=== PATIENT | female | born 1930 | race Caucasian/White ===

== ENCOUNTER 2016-09-02 13:48 | Outpatient (CLI) | payer MEDICARE, OTHER | END 2016-09-02 23:59 | DX: I47.1 Supraventricular tachycardia (principal); I10 Essential (primary) hypertension; I48.0 Paroxysmal atrial fibrillation; J44.9 Chronic obstructive pulmonary disease, unspecified ==

== ENCOUNTER 2017-01-20 09:32 | Outpatient (CLI) | payer MEDICARE, OTHER ==
[2017-01-20 12:55] LABS: CALCIUM 9.6 mg/dL (8.5-10.3); CREATININE 0.8 mg/dL (0.4-1.0); POTASSIUM 4.5 mmol/L (3.5-5.0)
[2017-01-20 13:24] LABS: HCT - HEMATOCRIT 36.4 % (37.0-47.0); HGB - HEMOGLOBIN 11.7 g/dL (12.0-16.0); MEAN CORPUSCULAR HEMOGLOBIN 31.7 pg (27.0-31.0); MEAN CORPUSCULAR HGB CONC 32.1 g/dL (32.0-36.0); MEAN CORPUSCULAR VOLUME 98.7 fL (81.0-99.0); MEAN PLATELET VOLUME 8.3 fL (7.9-10.8); RED BLOOD COUNT 3.68 10^6/uL (4.20-5.40); RED CELL DISTRIBUTION WIDTH 15.2 % (12.0-15.0); WHITE BLOOD COUNT 6.8 x10^3/uL (4.8-10.8)
== END 2017-01-20 09:33 | disposition home or self-care (01) ==
LOC: LAB.WCP 09:32
PROVIDERS: ATTEND Family Medicine
DX: R60.0 Localized edema (principal)
CPT/HCPCS: 36415; 80048; 85025

== ENCOUNTER 2017-02-16 14:36 | Emergency (ER) | payer MEDICARE, OTHER ==
[2017-02-16] MEDS ORDERED: SODIUM CHLORIDE 0.9% 1,000 ML IV ONE (15:51)
[2017-02-16] MEDS ORDERED: DEXAMETHASONE 10 MG/ML VIAL IVP STA (15:51)
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
[2017-02-16] MEDS ORDERED: DEXAMETHASONE 10 MG/ML VIAL ONE (16:00)
[2017-02-16] MEDS ORDERED: SODIUM CHLORIDE FLUSH 0.9% 10 ML SYRINGE IVP ONE (16:01)
[2017-02-16 16:19] LABS: BILIRUBIN,URINE NEGATIVE (NEGATIVE); PH,URINE 5.5 PH (5.0-7.5)
[2017-02-16 16:21] LABS: UA CHARGE (STRIP ONLY) YES; UR CULTURE IF IND NOT INDICATED
[2017-02-16 16:39] LABS: BASOPHILS # (AUTO) 0.1 10^3/uL (0.0-0.1); BASOPHILS % (AUTO) 0.8 %; EOSINOPHILS # (AUTO) 0.1 10^3/uL (0.0-0.7); EOSINOPHILS % (AUTO) 1.4 %; HCT - HEMATOCRIT 40.2 % (37.0-47.0); LYMPHOCYTES # (AUTO) 1.1 10^3/uL (1.5-3.5); LYMPHOCYTES % (AUTO) 12.6 %; MEAN CORPUSCULAR HGB CONC 32.3 g/dL (32.0-36.0); MEAN PLATELET VOLUME 7.8 fL (7.9-10.8); MONOCYTES # (AUTO) 0.7 10^3/uL (0.0-1.0); MONOCYTES % (AUTO) 7.6 %; NEUTROPHILS % (AUTO) 77.6 %; RED BLOOD COUNT 4.06 10^6/uL (4.20-5.40); RED CELL DISTRIBUTION WIDTH 14.5 % (12.0-15.0)
--- NOTE | 2017-02-16 16:45 | XRAY Preliminary Report ---
Exam: XR Chest 2 View PA/LAT IMPRESSION: 1. Hyperinflation suggesting underlying emphysema with pulmonary cephalization. [facility] SITE ID: [id number]
[2017-02-16 16:48] VITALS: BP 116/58
--- NOTE | 2017-02-16 16:48 | XRAY Report ---
EXAM: CHEST RADIOGRAPHY EXAM DATE: 02/16/2017 03:55 PM. CLINICAL HISTORY: Left posterior chest pain. COMPARISON: Chest x-ray 09/07/2014. TECHNIQUE: 2 views. FINDINGS: Lungs/Pleura: Hyperinflated chest without evidence of pleural effusion or pneumothorax. Pulmonary cep halization. Mediastinum: Normal heart size with aortic tortuosity and atherosclerotic calcification. Other: Osteopenia IMPRESSION: 1. Hyperinflation suggesting underlying emphysema with pulmonary cephalization. [facility] Referring Provider Line: [phone] SITE ID: [id number]
[2017-02-16 16:53] LABS: ALBUMIN/GLOBULIN RATIO 1.3 (1.0-2.2); BILIRUBIN,TOTAL 0.4 mg/dL (0.2-1.0); CALCIUM 10.2 mg/dL (8.5-10.3); POTASSIUM 4.2 mmol/L (3.5-5.0); TOTAL PROTEIN 7.6 g/dL (6.7-8.2)
[2017-02-16] MEDS ORDERED: HYDROcod/ACET 5/325 Prepack 6 PO ONE ×2 (18:04→18:10)
== END 2017-02-16 18:15 | disposition home or self-care (01) ==
LOC: ED 14:36
DX: E86.0 Dehydration (principal); M79.1 Myalgia; J44.9 Chronic obstructive pulmonary disease, unspecified; Z99.81 Dependence on supplemental oxygen; Z79.82 Long term (current) use of aspirin; F17.200 Nicotine dependence, unspecified, uncomplicated
CPT/HCPCS: 36415; 71020; 80053; 81001; 81003; 83690; 83880; 84484; 85025; 87086; 96361; 96374; 99283; 99284

== ENCOUNTER 2017-08-03 11:20 | Outpatient (CLI) | payer MEDICARE, OTHER ==
--- NOTE | 2017-08-03 13:17 | XRAY Report ---
EXAM: ABDOMEN RADIOGRAPHY 2 VIEWS EXAM DATE: 08/03/2017. CLINICAL HISTORY: Generalize abdominal pain. COMPARISON: CT done 07/30/2013. TECHNIQUE: 2 views. FINDINGS: Lung Bases: Left lower lung scarring is unchanged. No acute abnormality. Bowel Gas Pattern: Gas scattered in nondistended small bowel and colon. No abnormal air-fluid levels. Free Air: None. Soft Tissues: Vascular calcifications in the abdomen and pelvis. Bones: Degenerative changes of the spine and hips. DEXA convex thoracolumbar scoliosis. IMPRESSION: Bowel gas pattern consistent with mild ileus. Otherwise, no acute abnormality. [facility] Referring Provider Line: [phone] SITE ID: [id number]
== END 2017-08-03 11:21 | disposition home or self-care (01) ==
LOC: DI 11:20
PROVIDERS: ATTEND Physician Assistant Medical
DX: R10.84 Generalized abdominal pain (principal)
CPT/HCPCS: 74019

== ENCOUNTER 2017-10-29 09:09 | Outpatient (CLI) | payer MEDICARE, OTHER ==
[2017-10-29] MEDS ORDERED: ALBUTEROL NEB 2.5 MG/3 ML INH ONE (09:30)
== END 2017-10-29 09:10 | disposition home or self-care (01) ==
LOC: RT 09:09
PROVIDERS: ATTEND Physician Assistant Medical
DX: J44.1 Chronic obstructive pulmonary disease with (acute) exacerbation (principal)
CPT/HCPCS: 94060; 94729

== ENCOUNTER 2017-12-21 12:10 | Emergency (ER) | payer MEDICARE, OTHER ==
--- NOTE | 2017-12-21 14:18 | ED Physician Documentation ---
PD HPI ABD PAIN - Stated complaint Stated Complaint: ABD PX - Chief complaint Chief Complaint: Abd Pain - History obtained from History obtained from: Patient, Family - History of Present Illness Timing - onset: Other (She has had one month she says of on and off left lower quadrant pain not associated with nausea but only occasional Constipation. It was much worse for 4 hours today but now the pain is gone again. She says the pains been going on for about a month, she says she had x-rays in the office within the last month but review the chart shows it was actually on August 07.) Review of Systems Ten Systems: 10 systems reviewed and negative Constitutional: denies: Fever, Chills Ears: denies: Loss of hearing, Ear pain Nose: denies: Rhinorrhea / runny nose, Congestion Throat: denies: Sore throat Cardiac: denies: Chest pain / pressure, Palpitations GI: reports: Abdominal Pain, Constipation (occ). 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 - Present Medications Home Medications: Ambulatory Orders Medication Instructions Recorded Confirmed Aspirin [Aspir 81] 81 mg ORAL DAILY 04/05/14 02/16/17 Metoprolol Tartrate 75 mg ORAL BID 04/05/14 02/16/17 Potassium Chloride [K-Dur] 40 meq ORAL DAILY 04/05/14 02/16/17 Albuterol Sulfate 1.25 mg INH BID 07/02/14 02/16/17 Ipratropium [Atrovent] 0.5 mg INH QID 07/02/14 02/16/17 Areds 02/16/17 Beclomethasone 80 Mcg [Qvar 80] 2 puffs PO BID 02/16/17 02/16/17 Furosemide [Lasix] 20 mg PO DAILY 02/16/17 02/16/17 Furosemide [Lasix] 40 mg PO DAILY 02/16/17 02/16/17 HYDROcod/ACETAM 5/325 [[place] 5/325] 1 - 2 ea PO Q6H PRN #15 tablet 02/16/17 HYDROcod/ACETAM 5/325 [[place] 5/325] 1 - 2 ea PO Q6H PRN #10 tablet 12/21/17 Sertraline [Zoloft] 50 mg 12/21/17 hydrOXYzine HCl [Hydroxyzine HCl] 25 mg 12/21/17 - Allergies Allergies/Adverse Reactions: Allergies Allergy/AdvReac Type Severity Reaction Status Date / Time levofloxacin [From Levaquin] AdvReac Unknown Verified 02/16/17 14:45 - Social History Does the pt smoke?: Yes Smoking Status: Current every day smoker Does the pt drink ETOH?: No Does the pt have substance abuse?: No - Immunizations Immunizations are current?: Yes - POLST Patient has POLST: No PD ED PE NORMAL - Vitals Vital signs reviewed: Yes - General General: Alert and oriented X 3, No acute distress - HEENT HEENT: PERRL, EOMI - Neck Neck: Supple, no meningeal sign, No bony TTP - Cardiac Cardiac: RRR, No murmur - Respiratory Respiratory: No respiratory distress, Other (crackles/rhonchi throughout) - Abdomen Abdomen: Normal bowel sounds, Soft, Non tender - Back Back: No CVA TTP, No spinal TTP - Derm Derm: Normal color, Warm and dry - Extremities Extremities: No edema, No calf tenderness / cord - Neuro Neuro: Alert and oriented X 3, Normal speech Results - Vitals Vitals: Vital Signs - 24 hr 12/21/17 12:26 Temperature 37.2 C Heart Rate 72 Respiratory 18 Rate Blood Pressure 123/75 O2 Saturation 97 Oxygen O2 Source [Without Activity] Room air O2 Source Nasal cannula - Labs Labs: Laboratory Tests 12/21/17 12/21/17 14:19 14:19 WBC 8.0 RBC 3.83 L Hgb 12.1 Hct 37.0 MCV 96.7 MCH 31.6 H MCHC 32.7 RDW 14.6 Plt Count 352 MPV 7.2 L Neut # (Auto) 5.8 Lymph # (Auto) 1.1 L [place] # (Auto) 0.7 Eos # (Auto) 0.3 Baso # (Auto) 0.1 Absolute Nucleated RBC 0.00 Nucleated RBC % 0.0 Sodium 132 L Potassium 4.8 Chloride 95 L Carbon Dioxide 26 Anion Gap 11.0 BUN 25 H Creatinine 0.8 Estimated GFR (MDRD) 68 L Glucose 100 Calcium 9.4 Total Bilirubin 0.8 AST 20 ALT 20 Alkaline Phosphatase 78 Total Protein 7.4 Albumin 3.9 Globulin 3.5 Albumin/Globulin Ratio 1.1 Lipase 44 - Rads (name of study) CT A/P Radiology: EMP read contemporaneously (Heterogenous mass near the back of the spleen that could be sarcoma/liposarcoma or metastatic disease with cystic adnexal lesions that are stable and right inguinal hernia and diverticulosis.) PD MEDICAL DECISION MAKING - ED course ED course: 87-year-old woman presents with indolent left-sided abdominal pain that comes and goes probably for several months duration and is shown to have a retroperitoneal/splenic lesion on CT which could be consistent with malignancy. Case was discussed by phone with Dr. Primitivo Ervin who will see her in the office and likely arrange for IR guided biopsy. - Sepsis Event Vital Signs: Vital Signs - 24 hr 12/21/17 12:26 Temperature 37.2 C Heart Rate 72 Respiratory 18 Rate Blood Pressure 123/75 O2 Saturation 97 Oxygen O2 Source [Without Activity] Room air O2 Source Nasal cannula Departure - Departure Disposition: 01 Home, Self Care Clinical Impression: Retroperitoneal mass Abdominal pain Qualifiers: Abdominal location: unspecified location Qualified Code(s): R10.9 - Unspecified abdominal pain Condition: Good Record reviewed to determine appropriate education?: Yes Follow-Up: Primitivo Ervin MD [Provider Admit Priv/Credential] - Prescriptions: HYDROcod/ACETAM 5/325 [[place] 5/325] 1 - 2 ea PO Q6H PRN #10 tablet PRN Reason: Pain Comments: Call Dr. Ervin's office tomorrow to arrange for expedited follow-up, likely for referral for interventional radiology guided biopsy of the mass near the spleen. Return if worsening or if pain is not controlled by the pain medication.
[2017-12-21 14:23] LABS: BASOPHILS # (AUTO) 0.1 10^3/uL (0.0-0.1); BASOPHILS % (AUTO) 0.9 %; EOSINOPHILS # (AUTO) 0.3 10^3/uL (0.0-0.7); EOSINOPHILS % (AUTO) 3.4 %; HGB - HEMOGLOBIN 12.1 g/dL (12.0-16.0); LYMPHOCYTES # (AUTO) 1.1 10^3/uL (1.5-3.5); LYMPHOCYTES % (AUTO) 13.6 %; MEAN CORPUSCULAR HEMOGLOBIN 31.6 pg (27.0-31.0); MEAN CORPUSCULAR HGB CONC 32.7 g/dL (32.0-36.0); MEAN CORPUSCULAR VOLUME 96.7 fL (81.0-99.0); MEAN PLATELET VOLUME 7.2 fL (7.9-10.8); MONOCYTES # (AUTO) 0.7 10^3/uL (0.0-1.0); MONOCYTES % (AUTO) 8.6 %; NEUTROPHILS # (AUTO) 5.8 10^3/uL (1.5-6.6); NEUTROPHILS % (AUTO) 73.5 %; PLT - PLATELET COUNT 352 10^3/uL (130-450); RED BLOOD COUNT 3.83 10^6/uL (4.20-5.40); RED CELL DISTRIBUTION WIDTH 14.6 % (12.0-15.0)
[2017-12-21 14:36] LABS: ALBUMIN 3.9 g/dL (3.2-5.5); ALBUMIN/GLOBULIN RATIO 1.1 (1.0-2.2); BILIRUBIN,TOTAL 0.8 mg/dL (0.2-1.0); CALCIUM 9.4 mg/dL (8.5-10.3); CREATININE 0.8 mg/dL (0.4-1.0); TOTAL PROTEIN 7.4 g/dL (6.7-8.2)
[2017-12-21] MEDS ORDERED: IOPAMIDOL-300 100 ML VIAL ONE (14:38)
[2017-12-21] MEDS ORDERED: IOPAMIDOL-300 100 ML VIAL IVP ONE (15:46)
--- NOTE | 2017-12-21 17:00 | CT Report ---
Procedure Date: 12/21/2017 Accession Number: [id number] / [id number] Procedure: CT - Abdomen/Pelvis W/ CPT Code: FULL RESULT: EXAM: CT ABDOMEN AND PELVIS EXAM DATE: 12/21/2017 03:44 PM. CLINICAL HISTORY: Left lower quadrant pain COMPARISONS: Abdomen and pelvis CT 07/30/2013. TECHNIQUE: Routine helical CT imaging was performed through the abdomen and pelvis. IV contrast: 100 cc Isovue 300. Enteric contrast: No. Reconstructions: Coronal and sagittal. In accordance with CT protocol optimization, one or more of the following dose reduction techniques were utilized for this exam: automated exposure control, adjustment of mA and/or KV based on patient size, or use of iterative reconstructive technique. FINDINGS: Lung Bases: Slight bronchiectasis within the lung bases with areas of diskoid atelectasis in the bilateral lower lobes. Slight subpleural nodularity within the right lower lobe. Liver: Normal in contour with several hypodensities within the left lobe. Largest are water density consistent with hepatic cysts with at least 4 lesions which are too small for characterization. Gallbladder/Bile Ducts: Unremarkable. Spleen: The spleen is displaced anteromedially with a heterogeneous lesion in the left upper quadrant. This measures 9.2 x 7.2 x 9.2 cm. Lesion is complex with areas of macroscopic fat as well as some septation. This likely arises from the outer margin or capsule of the spleen. Pancreas: Normal. Adrenal Glands: Slight adrenal nodularity, similar to the prior exam. Kidneys: Some renal cortical thinning on the right with an extrarenal pelvis on the left. Enhancing nodule adjacent to the left kidney measuring 4 mm, possibly a small lymph node. Peritoneal Cavity/Bowel: The stomach is decompressed and unremarkable. Angie hepatis lymph nodes measure up to 11 mm. No dilated loops of large or small intestine. Extensive colonic diverticulosis noted. Right indirect inguinal hernia with small bowel in the hernia sac without evidence of obstruction. Pelvic Organs: The bladder is unremarkable. Note is made of bilateral low-density lesions in the adnexa measuring up to 2.3 cm on the left which is similar to the prior examination as well as 4.7 cm on the right with some rim calcification which is mildly decreased in size compared to the prior exam. Vasculature: Atherosclerosis without abdominal aortic aneurysm. Bones: Diffuse degenerative disk disease lumbar spine. Other: None. IMPRESSION: 1. Left upper quadrant/perisplenic mass measuring up to 9.2 cm with internal fat density. Although a lesion such as a splenic hamartoma is possible, this is a new finding compared to the 2014 CT scan. Therefore this is more concerning for a new retroperitoneal mass such as a retroperitoneal sarcoma/liposarcoma or metastatic disease. 2. Bilateral adnexal cystic regions, stable in the left and mildly decreased in size on the right. Considering the greater than four-year stability these likely represent either postmenopausal cysts or cystadenomas. 3. Colonic diverticulosis without arina diverticulitis. 4. Right indirect inguinal hernia with small bowel in the hernia sac without evidence of obstruction. [facility]
[2017-12-21] MEDS ORDERED: HYDROcod/ACET 5/325 Prepack 4 PO STA (17:13)
[2017-12-21 17:17] VITALS: BP 119/76
== END 2017-12-21 17:50 | disposition home or self-care (01) ==
LOC: ED 12:10
DX: R19.09 Other intra-abdominal and pelvic swelling, mass and lump (principal); F17.200 Nicotine dependence, unspecified, uncomplicated
CPT/HCPCS: 36415; 74177; 80053; 83690; 85025; 99283; Q9967

== ENCOUNTER 2018-01-09 11:17 | Outpatient (CLI) | payer MEDICARE, OTHER ==
--- NOTE | 2018-01-09 12:40 | Ultrasound Report ---
Procedure Date: 01/09/2018 Accession Number: [id number] / [id number] Procedure: US - Abdomen Limited CPT Code: FULL RESULT: EXAM: Abdomen Limited DATE: 01/09/2018 12:04 PM CLINICAL HISTORY: SPLENOMEGALY, NOT ELSEWHERE CLASSIFIED COMPARISON: CT abdomen pelvis 12/21/2017. TECHNIQUE: Real-time scanning was performed with static images obtained. FINDINGS: Limited focused ultrasound of the previous the identified splenic masses performed to assess feasibility of percutaneous biopsy and obtained sonographic characterization. The spleen and mass are too large to confidently measure by ultrasound and better measured on the previous CT. The mass lies approximately 3 cm deep to the skin and would be accessible from a posterior approach. The mass is heterogeneous sonographically and relatively hypovascular by color Doppler and confirmed to be subcapsular and splenic. IMPRESSION: Subcapsular splenic mass. Interview of the patient reveals 2 things: 1.) The patient had a history of significantly traumatic fall between 2013 and today when her porch was built, approximately 2014. Radiographic persistence of a subcapsular splenic bleed over this timeframe would be highly unusual. 2.) The patient has advanced emphysema but feels that she should not undergo CT screening given her age and preference not to undergo oncologic therapy if a lung cancer were discovered. Given this, sincere conversation regarding possible outcomes of a biopsy including benign and malignant results and the risk-benefit ratio of a percutaneous biopsy procedure of the spleen (high risk) framed within the overall growth of care of the patient is advised. OLIMPIAA
== END 2018-01-09 11:18 | disposition home or self-care (01) ==
LOC: DI 11:17
PROVIDERS: ATTEND Internal Medicine Gastroenterology
DX: R16.1 Splenomegaly, not elsewhere classified (principal)
CPT/HCPCS: 76705

== ENCOUNTER 2018-01-13 12:42 | Outpatient (CLI) | payer MEDICARE, OTHER | END 2018-01-13 12:43 | disposition critical access hospital (66) | LOC: EMS 12:42 | PROVIDERS: ATTEND Surgery | DX: M25.562 Pain in left knee (principal); M25.561 Pain in right knee; W01.0XXA Fall on same level from slipping, tripping and stumbling without subsequent striking against object, initial encounter; Y92.009 Unspecified place in unspecified non-institutional (private) residence as the place of occurrence of the external cause | CPT/HCPCS: A0425; A0429 ==

== ENCOUNTER 2018-01-13 12:51 | Emergency (ER) | payer MEDICARE, OTHER ==
[2018-01-13] MEDS ORDERED: oxyCODONE 5 MG TABLET PO STA (13:42)
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
--- NOTE | 2018-01-13 14:35 | ED Physician Documentation ---
History of Present Illness - Stated complaint Stated Complaint: FALL - Chief complaint Chief Complaint: Ext Problem - Additonal information Additional information: hx from pt tripped over O2 tubing landed on knees pain to proximal tibia verenice L > R no head neck chest abd injury hands and wrists fine Review of Systems Cardiac: denies: Chest pain / pressure Respiratory: denies: Dyspnea GI: denies: Abdominal Pain Skin: denies: Abrasion (s) Musculoskeletal: reports: Extremity pain, Pain with weight bearing. 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 - Present Medications Home Medications: Ambulatory Orders Medication Instructions Recorded Confirmed Aspirin [Aspir 81] 81 mg ORAL DAILY 04/05/14 02/16/17 Metoprolol Tartrate 75 mg ORAL BID 04/05/14 02/16/17 Potassium Chloride [K-Dur] 40 meq ORAL DAILY 04/05/14 02/16/17 Albuterol Sulfate 1.25 mg INH BID 07/02/14 02/16/17 Ipratropium [Atrovent] 0.5 mg INH QID 07/02/14 02/16/17 Areds 02/16/17 Beclomethasone 80 Mcg [Qvar 80] 2 puffs PO BID 02/16/17 02/16/17 Furosemide [Lasix] 20 mg PO DAILY 02/16/17 02/16/17 Furosemide [Lasix] 40 mg PO DAILY 02/16/17 02/16/17 HYDROcod/ACETAM 5/325 [[place] 5/325] 1 - 2 ea PO Q6H PRN #15 tablet 02/16/17 HYDROcod/ACETAM 5/325 [[place] 5/325] 1 - 2 ea PO Q6H PRN #10 tablet 12/21/17 Sertraline [Zoloft] 50 mg 12/21/17 hydrOXYzine HCl [Hydroxyzine HCl] 25 mg 12/21/17 - Allergies Allergies/Adverse Reactions: Allergies Allergy/AdvReac Type Severity Reaction Status Date / Time levofloxacin [From Levaquin] AdvReac Unknown Verified 02/16/17 14:45 - Social History Does the pt smoke?: Yes Smoking Status: Current every day smoker Does the pt drink ETOH?: No Does the pt have substance abuse?: No - Immunizations Immunizations are current?: Yes - POLST Patient has POLST: No PD ED PE NORMAL - Vitals Vital signs reviewed: Yes - HEENT HEENT: Atraumatic - Neck Neck: No bony TTP - Cardiac Cardiac: RRR - Respiratory Respiratory: No respiratory distress - Abdomen Abdomen: Soft, Non tender Results - Vitals Vitals: Vital Signs - 24 hr 01/13/18 13:01 Temperature 37.5 C Heart Rate 83 Respiratory 18 Rate Blood Pressure 127/75 O2 Saturation 98 Oxygen O2 Source [Without Activity] Room air O2 Source Nasal cannula - Rads (name of study) verenice tib fib Radiology: See rad report PD MEDICAL DECISION MAKING - Sepsis Event Vital Signs: Vital Signs - 24 hr 01/13/18 13:01 Temperature 37.5 C Heart Rate 83 Respiratory 18 Rate Blood Pressure 127/75 O2 Saturation 98 Oxygen O2 Source [Without Activity] Room air O2 Source Nasal cannula Departure - Departure Disposition: 01 Home, Self Care Clinical Impression: Contusion, knee and lower leg Qualifiers: Encounter type: initial encounter Laterality: unspecified laterality Qualified Code(s): S80.00XA - Contusion of unspecified knee, initial encounter; S80.10XA - Contusion of unspecified lower leg, initial encounter; S80.10XA - Contusion of unspecified lower leg, initial encounter Condition: Good Comments: Thankfully the xrays do not show any fractures Recommend BILLIE wraps and ice to decrease pain and swelling, your vicodin as needed for the pain, and consider using a walker or even a transport chair for a few days to get some of the weight bearing stress off the injured legs. You can call the [employer] in [facility] or [place] to see if they have any loaners. If still very painful in a week, please follow up with your PMD for re- evaluation and consideration of further imaging - occasionally cracks in the bone can be difficult to see on initial imaging and a MRI is necessary
[2018-01-13 14:45] VITALS: BP 135/96
== END 2018-01-13 14:52 | disposition home or self-care (01) ==
LOC: EDUNIT# → ED 12:51
DX: S80.00XA Contusion of unspecified knee, initial encounter (principal); S80.10XA Contusion of unspecified lower leg, initial encounter; W18.09XA Striking against other object with subsequent fall, initial encounter; F17.200 Nicotine dependence, unspecified, uncomplicated; Z99.81 Dependence on supplemental oxygen; Z79.82 Long term (current) use of aspirin
CPT/HCPCS: 73590; 99283; A9270

== ENCOUNTER 2018-02-21 19:51 | Outpatient (CLI) | payer MEDICARE, OTHER | END 2018-02-21 19:52 | disposition critical access hospital (66) | LOC: EMS 19:51 | PROVIDERS: ATTEND Surgery | DX: R10.9 Unspecified abdominal pain (principal); R14.0 Abdominal distension (gaseous) | CPT/HCPCS: A0425; A0427 ==

== ENCOUNTER 2018-02-21 20:01 | Inpatient (IN) | payer MEDICARE, OTHER ==
[2018-02-21] MEDS ORDERED: ONDANSETRON 4 MG/2 ML VIAL IVP STA (21:16)
[2018-02-21] MEDS ORDERED: SODIUM CHLORIDE 0.9% 1,000 ML IV ONE (21:17)
--- NOTE | 2018-02-21 21:18 | ED Physician Documentation ---
PD HPI ABD PAIN - Stated complaint Stated Complaint: WEAKNESS - Chief complaint Chief Complaint: Abd Pain - History obtained from History obtained from: Patient, Family - History of Present Illness Timing - duration: Days (Several days) Timing - details: Gradual onset Pain level max: 1 Pain level now: 1 Quality: Fullness/distended Location: All over / everywhere Improved by: Laying still Associated symptoms: Nausea, Vomiting. No: Fever, Hematemesis, Diarrhea, Constipation, Melena, Hematochezia, Dysuria Similar symptoms before: Has not had sx before Recently seen: Not recently seen - Additional information Additional information: Patient states that she has been feeling nauseous and not eating for the past 4 days. States she cannot lie flat on her back. Her belly is fully distended and full of air. Her last BM was today and states it was normal. Review of Systems Ten Systems: 10 systems reviewed and negative Constitutional: denies: Fever, Chills Nose: denies: Rhinorrhea / runny nose, Congestion Throat: denies: Sore throat Cardiac: denies: Chest pain / pressure Respiratory: denies: Cough GI: reports: Nausea, Vomiting. 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 - Past Surgical History Past Surgical History: Yes Ortho: Other /PIPELAYER: Tubal ligation - Present Medications Home Medications: Ambulatory Orders Medication Instructions Recorded Confirmed Aspirin [Aspir 81] 81 mg ORAL DAILY 04/05/14 02/16/17 Metoprolol Tartrate 75 mg ORAL BID 04/05/14 02/16/17 Potassium Chloride [K-Dur] 40 meq ORAL DAILY 04/05/14 02/16/17 Albuterol Sulfate 1.25 mg INH BID 07/02/14 02/16/17 Ipratropium [Atrovent] 0.5 mg INH QID 07/02/14 02/16/17 Areds 02/16/17 Beclomethasone 80 Mcg [Qvar 80] 2 puffs PO BID 02/16/17 02/16/17 Furosemide [Lasix] 40 mg PO DAILY 02/16/17 02/16/17 Sertraline [Zoloft] 50 mg 12/21/17 hydrOXYzine HCl [Hydroxyzine HCl] 25 mg 12/21/17 - Allergies Allergies/Adverse Reactions: Allergies Allergy/AdvReac Type Severity Reaction Status Date / Time levofloxacin [From Levaquin] AdvReac Unknown Verified 02/21/18 20:21 - Social History Does the pt smoke?: No Smoking Status: Former smoker Does the pt drink ETOH?: No Does the pt have substance abuse?: No - Immunizations Immunizations are current?: Yes - POLST Patient has POLST: No PD ED PE NORMAL - Vitals Vital signs reviewed: Yes - General General: Alert and oriented X 3, No acute distress, Well developed/nourished - HEENT HEENT: Moist mucous membranes, Pharynx benign - Neck Neck: Supple, no meningeal sign - Cardiac Cardiac: RRR, Strong equal pulses - Respiratory Respiratory: No respiratory distress, Clear bilaterally - Abdomen Abdomen: Soft, Non tender, Other (Distended abdomen, tympanic to percussion throughout. Hypoactive bowel sounds) - Back Back: No CVA TTP, No spinal TTP - Derm Derm: Warm and dry - Extremities Extremities: Normal ROM s pain, No edema - Neuro Neuro: Alert and oriented X 3 - Psych Psych: Normal mood, Normal affect Results - Vitals Vitals: Vital Signs - 24 hr 02/21/18 02/21/18 20:12 21:59 Temperature 36.8 C 36.6 C Heart Rate 83 86 Respiratory 16 14 Rate Blood Pressure 161/79 H 145/86 H O2 Saturation 95 99 Oxygen O2 Source [Without Activity] Room air O2 Source Nasal cannula - Labs Labs: Laboratory Tests 02/21/18 02/21/18 02/21/18 20:56 20:56 21:35 WBC 6.6 RBC 3.76 L Hgb 11.5 L Hct 35.7 L MCV 95.1 MCH 30.6 MCHC 32.2 RDW 15.1 H Plt Count 466 H MPV 8.0 Neut # (Auto) 5.7 Lymph # (Auto) 0.4 L [place] # (Auto) 0.5 Eos # (Auto) 0.0 Baso # (Auto) 0.0 Absolute Nucleated RBC 0.00 Nucleated RBC % 0.1 Sodium 137 Potassium 4.8 Chloride 91 L Carbon Dioxide 32 Anion Gap 14.0 H BUN 33 H Creatinine 0.9 Estimated GFR (MDRD) 59 L Glucose 98 Calcium 9.5 Total Bilirubin 0.7 AST 19 ALT 25 Alkaline Phosphatase 64 Total Protein 7.1 Albumin 3.7 Globulin 3.4 Albumin/Globulin Ratio 1.1 Lipase 26 Urine Color YELLOW Urine Clarity CLEAR Urine pH 5.5 Ur Specific [place] 1.020 Urine Protein NEGATIVE Urine Glucose (UA) NEGATIVE Urine Ketones TRACE Urine Occult Blood NEGATIVE Urine Nitrite NEGATIVE Urine Bilirubin NEGATIVE Urine Urobilinogen 0.2 (NORMAL) Ur Leukocyte Esterase NEGATIVE Ur Microscopic Review NOT INDICATED Urine Culture Comments NOT INDICATED - Rads (name of study) CT abdomen and pelvis Radiology: Prelim report reviewed, EMP read contemporaneously, See rad report (N ew distal small bowel obstruction. 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 ) PD MEDICAL DECISION MAKING - ED course Complexity details: reviewed old records, reviewed results, re-evaluated patient, considered differential, d/w patient, d/w family, d/w rewards consultant ED course: Patient is an 87-year-old female who presents to the emergency department with a distal small bowel obstruction. 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 There is possible hemorrhage along the lateral margin. Hemoglobin is stable from prior. She is not having significant pain at this time. I did recommend a nasogastric tube to the patient, she declines this. Discussed the case with Dr. Ortiz general surgery on-call who will consult in the morning along with medicine. Discussed the case with Dr. Antonio, hospitalist who accepts. This document was made in part using voice recognition software. While efforts are made to proofread this document, sound alike and grammatical errors may occur. - Sepsis Event Vital Signs: Vital Signs - 24 hr 02/21/18 02/21/18 20:12 21:59 Temperature 36.8 C 36.6 C Heart Rate 83 86 Respiratory 16 14 Rate Blood Pressure 161/79 H 145/86 H O2 Saturation 95 99 Oxygen O2 Source [Without Activity] Room air O2 Source Nasal cannula Departure - Departure Disposition: [facility] DC/Xfer Clinical Impression: Small bowel obstruction, Retroperitoneal mass Condition: Stable
[2018-02-21 21:21] LABS: ALBUMIN 3.7 g/dL (3.2-5.5); ALBUMIN/GLOBULIN RATIO 1.1 (1.0-2.2); BILIRUBIN,TOTAL 0.7 mg/dL (0.2-1.0); CALCIUM 9.5 mg/dL (8.5-10.3); CREATININE 0.9 mg/dL (0.4-1.0); TOTAL PROTEIN 7.1 g/dL (6.7-8.2)
[2018-02-21] MEDS ORDERED: IOPAMIDOL-300 100 ML VIAL ONE (21:23)
[2018-02-21 21:39] LABS: BASOPHILS % (AUTO) 0.4 %; EOSINOPHILS % (AUTO) 0.2 %; HGB - HEMOGLOBIN 11.5 g/dL (12.0-16.0); LYMPHOCYTES # (AUTO) 0.4 10^3/uL (1.5-3.5); MEAN CORPUSCULAR HEMOGLOBIN 30.6 pg (27.0-31.0); MEAN CORPUSCULAR HGB CONC 32.2 g/dL (32.0-36.0); MEAN CORPUSCULAR VOLUME 95.1 fL (81.0-99.0); MONOCYTES # (AUTO) 0.5 10^3/uL (0.0-1.0); MONOCYTES % (AUTO) 7.4 %; NEUTROPHILS # (AUTO) 5.7 10^3/uL (1.5-6.6); PLT - PLATELET COUNT 466 10^3/uL (130-450); RED BLOOD COUNT 3.76 10^6/uL (4.20-5.40); RED CELL DISTRIBUTION WIDTH 15.1 % (12.0-15.0); WHITE BLOOD COUNT 6.6 x10^3/uL (4.8-10.8)
[2018-02-21 21:51] LABS: BILIRUBIN,URINE NEGATIVE (NEGATIVE); GLUCOSE, URINE (UA) NEGATIVE (NEGATIVE); KETONES,URINE (UA) TRACE mg/dL (NEGATIVE); LEUKOCYTE ESTERASE, URINE NEGATIVE (NEGATIVE); NITRITE,URINE NEGATIVE (NEGATIVE); OCCULT BLOOD,URINE NEGATIVE (NEGATIVE); PH,URINE 5.5 PH (5.0-7.5); PROTEIN,URINE NEGATIVE (NEGATIVE); UROBILINOGEN,URINE 0.2 (NORMAL) E.U./dL (NORMAL)
[2018-02-21 21:52] LABS: CLARITY,URINE CLEAR (CLEAR)
[2018-02-21] MEDS ORDERED: IOPAMIDOL-300 100 ML VIAL IVP ONE (22:20)
[2018-02-21] MEDS ORDERED: PROMETHAZINE 25 MG/1 ML VIAL IM PRN (22:47)
[2018-02-21] MEDS ORDERED: PROCHLORPERAZINE 10 MG/2 ML VIAL IVP PRN (22:47)
[2018-02-21] MEDS ORDERED: SODIUM CHLORIDE FLUSH 0.9% 10 ML SYRINGE IVP PRN (22:47)
[2018-02-21] MEDS ORDERED: ONDANSETRON 4 MG/2 ML VIAL IVP PRN (22:47)
[2018-02-21] MEDS ORDERED: ZOLPIDEM 5 MG TABLET PO PRN (22:47)
[2018-02-21] MEDS ORDERED: ACETAMINOPHEN 325 MG TABLET PO PRN (22:47)
[2018-02-21] MEDS ORDERED: MORPHINE 2 MG/ML CARPUJECT IVP PRN (22:47)
[2018-02-21] MEDS ORDERED: oxyCODONE 5 MG TABLET PO PRN ×2 (22:47)
--- NOTE | 2018-02-21 22:58 | CT Report ---
Reason: abd pain, distention, vomiting Procedure Date: 02/21/2018 Accession Number: [id number] / [id number] Procedure: CT - Abdomen/Pelvis W/ CPT Code: FULL RESULT: EXAM: CT ABDOMEN AND PELVIS EXAM DATE: 02/21/2018 10:21 PM. CLINICAL HISTORY: Abd pain, distention, vomiting. COMPARISONS: ABDOMEN/PELVIS W/ 12/21/2017. TECHNIQUE: Routine helical CT imaging was performed through the abdomen and pelvis. IV contrast: ISOVUE 300 100mL. Enteric contrast: No. Reconstructions: Coronal and sagittal. In accordance with CT protocol optimization, one or more of the following dose reduction techniques were utilized for this exam: automated exposure control, adjustment of mA and/or KV based on patient size, or use of iterative reconstructive technique. FINDINGS: Lung Bases: Basilar bronchiectasis and patchy consolidation on the left. Liver: Stable cysts. No new lesion. Gallbladder/Bile Ducts: Unremarkable. Spleen: The mass arising from the posterior spleen has increased significantly in size, now measuring 14.3 x 12.2 x 9.6 cm (previously 9.2 x 9.2 x 7.2 cm). There is increased hyperdense material along the lateral margin, which may represent some hemorrhage into the mass. Pancreas: Normal. Adrenal Glands: Normal. Kidneys: Normal. No masses or hydronephrosis. Peritoneal Cavity/Bowel: Marked small bowel dilatation, with a thick-walled loop of small bowel in the right pelvis, likely representing the level of obstruction. Right inguinal hernia, containing a small loop of colon, but no evidence of small bowel herniation, so the hernia is likely unrelated to the small bowel obstruction. No free gas or free fluid. Pelvic Organs: Stable adnexal cysts, right greater than left. Colonic diverticulosis. Vasculature: No aneurysms or other significant abnormality. Bones: No significant abnormality. Other: None. IMPRESSION: New distal small bowel obstruction. 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 RADIA
--- NOTE | 2018-02-21 23:14 | HISTORY & PHYSICAL EXAMINATION ---
Chief Complaint - Chief Complaint Chief Complaint: Abdominal pain, nausea and vomiting History of Present Illness - Admitted From Admitted From:: Emergency Department - History Obtained From Records Reviewed: Yes History obtained from: Patient and medical records Exam Limitations: None - History of Present Illness HPI Comment/Other: Patient is an 87-year-old female with a past medical history significant for emphysema on 4 L of home oxygen, paroxysmal supraventricular tachycardia, hypertension, depression and recent diagnosis of a splenic tumor for which she was following with Dr. Ervin, general surgery and presents to the emergency department today with chief complaint of abdominal pain, nausea and vomiting. The patient states that her symptoms started about 3 days ago with mild abdominal pain which she states was located mostly in the right lower quadrant. She states over the last 3 days the pain has gradually been worsening to the point where today it became severe. She states that today the pain was 8-9 out of 10 prior to her coming to the emergency department. The patient states that it was a cramping type of pain and initially was intermittent but now was becoming more and more constant. The patient states that she had associated nausea for the last 2 days and felt as though she could vomit but continued to resist the vomiting. She states that today she could no longer keep herself from vomiting and has had multiple episodes of vomiting at home. She also states that she has had decreased appetite and has been unable to eat anything today. The patient states that her last bowel movement was earlier this morning. She states that although the last 2 days she has not been feeling well today is when she really felt sick. The patient also states that her family has noticed that she has had increasing distention of her abdomen. She states that her abdomen is always slightly distended but it is significantly more distended today. The patient denies any fevers or chills. She denies any urinary urgency, urinary frequency or dysuria. She denies any flank pain. She denies any diarrhea. Patient denies any headaches, blurred vision, runny nose, sore throat, nasal congestion, difficulty swallowing, chest pain, shortness of air, orthopnea, PND, increased lower extremity swelling, palpitations, joint pain, joint swelling, back pain, neck stiffness, hair loss, skin rash, recent unintentional weight loss or any focal neurologic deficits. On presentation to the emergency department the patient was afebrile and hypertensive with otherwise normal vital signs. The patient was on 4 L of oxygen which is her normal home oxygen requirement. The patient was found to have significant abdominal tenderness on examination with a very distended abdomen. The patient's initial lab work revealed a mild anemia but otherwise was within normal limits. The patient's urinalysis was negative. The patient did undergo a CT of her abdomen and pelvis which revealed a new distal small bow el obstruction. 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 Given these findings of new distal small bowel obstruction the emergency room physician spoke with the surgeon hydroponics worker Dr. Ortiz who asked that the hospitalist team admit the patient and place an NG tube to suction. He stated that he would consult on the patient and for now that the patient should be treated with medical management. 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 She states that she was born and raised on [facility] and has lived here all her life. She lives with her son. She is her a few years ago. She has 3 children all of whom live on [facility]. She states that she uses a walker at home and is very limited on her activities of daily living due to her chronic emphysema and shortness of breath. She states that she quit smoking in November 2017 prior to that she smoked a pack a day for more than 70 years. She also used to be a heavy drinker but quit drinking about 20 years ago. She denies any illicit drug use. She does state that she tried marijuana once in her life with her brother but did not enjoy it. - POLST Patient has POLST: No POLST Status: Full Code Meds/Allgy - Home Medications Home Medications: Ambulatory Orders Medication Instructions Recorded Confirmed Aspirin [Aspir 81] 81 mg ORAL DAILY 04/05/14 02/16/17 Metoprolol Tartrate 75 mg ORAL BID 04/05/14 02/16/17 Potassium Chloride [K-Dur] 40 meq ORAL DAILY 04/05/14 02/16/17 Albuterol Sulfate 1.25 mg INH BID 07/02/14 02/16/17 Ipratropium [Atrovent] 0.5 mg INH QID 07/02/14 02/16/17 Areds 02/16/17 Beclomethasone 80 Mcg [Qvar 80] 2 puffs PO BID 02/16/17 02/16/17 Furosemide [Lasix] 40 mg PO DAILY 02/16/17 02/16/17 Sertraline [Zoloft] 50 mg 12/21/17 hydrOXYzine HCl [Hydroxyzine HCl] 25 mg 12/21/17 - Allergies Allergies/Adverse Reactions: Allergies Allergy/AdvReac Type Severity Reaction Status Date / Time levofloxacin [From Levaquin] AdvReac Unknown Verified 02/21/18 20:21 Review of Systems - Other Findings Other Findings: A comprehensive review of systems was performed the pertinent positives and negatives are stated above in the HPI and the remainder of the review of systems is negative. Exam - Vital Signs Reviewed Vital Signs: Yes Vital Signs: Vital Signs x48h Temp Pulse Resp BP Pulse Ox 02/21/18 21:59 36.6 C 86 14 145/86 H 99 02/21/18 20:12 36.8 C 83 16 161/79 H 95 - Physical Exam General Appearance: positive: Alert, Mild distress (Abdominal distension and pain), Other (Thin, frail, elderly) Eyes Bilateral: positive: Normal inspection, PERRL, EOMI, No lid inflammation, Conjunctivae nml, No scleral icterus ENT: positive: ENT inspection nml, Pharynx nml, Dry mucous membranes. negative: Purulent nasal drainage, Pharyngeal erythema, Oral lesions Neck: positive: Nml inspection, Thyroid nml, No JVD, Trachea midline. negative: Thyromegaly, Lymphadenopathy (R), Lymphadenopathy (L), Carotid bruit, Tracheal deviation Respiratory: positive: Chest non-tender, No respiratory distress, Wheezes (upper airways), Other (Decreased breath sounds bilaterally). negative: Rales, Rhonchi Cardiovascular: positive: Regular rate & rhythm, No murmur, No gallop Peripheral Pulses: positive: 2+ Abdomen: positive: Tenderness (Tenderness on palpation esepecially in the right lower quadrant but has diffuse tenderness, without rebound and guarding, soft but distended abdomen.), Splenomegaly, Abnml bowel sounds (Decreased). negative: Guarding, Rebound Back: positive: Nml inspection. negative: CVA tenderness (R), CVA tenderness (L) Skin: positive: Color nml, No rash, Warm, Dry. negative: Cyanosis, Diaphoresis, Pallor, Skin rash Extremities: positive: Non-tender, Full ROM, Nml appearance, No pedal edema Neurologic/Psychiatric: positive: Oriented x3, CN's nml (2-12), Motor nml, Sensation nml, Mood/affect nml Conclusion/Plan - Problem List (1) Small bowel obstruction Conclusion/Plan: Patient presented with abdominal pain, nausea and vomiting. She was found to have abdominal distention on examination with abdominal tenderness. The CT of the patient's abdomen revealed a distal small bowel obstruction with transition point in the right pelvis. Patient was admitted for small bowel obstruction. Plan: N.p.o. 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 Mass yifan ears to have increased in size significantly now measuring 14.3 x 12.2 x 9.6 cm which was previously 9.2 x 9.2 x 7.2 cm. There is also increased hyperdense material along the lateral margin which may represent some hemorrhage into the mass. 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 Plan: Pain control Monitor hemoglobin daily Surgery consult Patient will likely need a splenectomy or removal of the liposarcoma in the future but patient is a poor surgical candidate given her chronic respiratory failure with severe emphysema. (3) Hypertension Conclusion/Plan: Patient has a history of hypertension and and is on Lasix and metoprolol at home. The patient's blood pressure is elevated on presentation. It appears likely to be elevated secondary to pain. For now the patient will be given pain medication for pain control. Since the patient is n.p.o. we will not continue her home antihypertensive medications. If the patient's blood pressure continues to be uncontrolled we will consider starting her on IV antihyper tensive medications. Qualifiers: Hypertension type: essential hypertension Qualified Code(s): I10 - Essential (primary) hypertension (4) COPD (chronic obstructive pulmonary disease) with emphysema Conclusion/Plan: Patient is a history of COPD which appears to be end-stage secondary to emphysema and is on 4 L of home oxygen. On presentation the patient does have some upper airway wheezing. Patient will be placed on duo nebs as needed while she is hospitalized and also on budesonide and formoterol twice daily. We will also continue the patient's supplemental oxygen. She does not appear to be in a COPD exacerbation. Qualifiers: Emphysema type: unspecified Qualified Code(s): J43.9 - Emphysema, unspecified - Lab Results Lab results reviewed: Yes Fish Bones: 02/21/18 20:56 02/21/18 20:56 Other Lab Results: Laboratory Results WBC 6.6 x10^3/uL (4.8-10.8) 02/21/18 20:56 RBC 3.76 10^6/uL (4.20-5.40) L 02/21/18 20:56 Hgb 11.5 g/dL (12.0-16.0) L 02/21/18 20:56 Hct 35.7 % (37.0-47.0) L 02/21/18 20:56 MCV 95.1 fL (81.0-99.0) 02/21/18 20:56 MCH 30.6 pg (27.0-31.0) 02/21/18 20:56 MCHC 32.2 g/dL (32.0-36.0) 02/21/18 20:56 RDW 15.1 % (12.0-15.0) H 02/21/18 20:56 Plt Count 466 10^3/uL (130-450) H 02/21/18 20:56 MPV 8.0 fL (7.9-10.8) 02/21/18 20:56 Neut # (Auto) 5.7 10^3/uL (1.5-6.6) 02/21/18 20:56 Lymph # (Auto) 0.4 10^3/uL (1.5-3.5) L 02/21/18 20:56 [place] # (Auto) 0.5 10^3/uL (0.0-1.0) 02/21/18 20:56 Eos # (Auto) 0.0 10^3/uL (0.0-0.7) 02/21/18 20:56 Baso # (Auto) 0.0 10^3/uL (0.0-0.1) 02/21/18 20:56 Absolute Nucleated RBC 0.00 x10^3/uL 02/21/18 20:56 Nucleated RBC % 0.1 /100WBC 02/21/18 20:56 Sodium 137 mmol/L (135-145) 02/21/18 20:56 Potassium 4.8 mmol/L (3.5-5.0) 02/21/18 20:56 Chloride 91 mmol/L (101-111) L 02/21/18 20:56 Carbon Dioxide 32 mmol/L (21-32) 02/21/18 20:56 Anion Gap 14.0 (6-13) H 02/21/18 20:56 BUN 33 mg/dL (6-20) H 02/21/18 20:56 Creatinine 0.9 mg/dL (0.4-1.0) 02/21/18 20:56 Estimated GFR (MDRD) 59 (>89) L 02/21/18 20:56 Glucose 98 mg/dL (70-100) 02/21/18 20:56 Calcium 9.5 mg/dL (8.5-10.3) 02/21/18 20:56 Total Bilirubin 0.7 mg/dL (0.2-1.0) 02/21/18 20:56 AST 19 IU/L (10-42) 02/21/18 20:56 ALT 25 IU/L (10-60) 02/21/18 20:56 Alkaline Phosphatase 64 IU/L (42-121) 02/21/18 20:56 Total Protein 7.1 g/dL (6.7-8.2) 02/21/18 20:56 Albumin 3.7 g/dL (3.2-5.5) 02/21/18 20:56 Globulin 3.4 g/dL (2.1-4.2) 02/21/18 20:56 Albumin/Globulin Ratio 1.1 (1.0-2.2) 02/21/18 20:56 Lipase 26 U/L (22-51) 02/21/18 20:56 Urine Color YELLOW 02/21/18 21:35 Urine Clarity CLEAR (CLEAR) 02/21/18 21:35 Urine pH 5.5 PH (5.0-7.5) 02/21/18 21:35 Ur Specific [place] 1.020 (1.002-1.030) 02/21/18 21:35 Urine Protein NEGATIVE mg/dL (NEGATIVE) 02/21/18 21:35 Urine Glucose (UA) NEGATIVE mg/dL (NEGATIVE) 02/21/18 21:35 Urine Ketones TRACE mg/dL (NEGATIVE) 02/21/18 21:35 Urine Occult Blood NEGATIVE (NEGATIVE) 02/21/18 21:35 Urine Nitrite NEGATIVE (NEGATIVE) 02/21/18 21:35 Urine Bilirubin NEGATIVE (NEGATIVE) 02/21/18 21:35 Urine Urobilinogen 0.2 (NORMAL) E.U./dL (NORMAL) 02/21/18 21:35 Ur Leukocyte Esterase NEGATIVE (NEGATIVE) 02/21/18 21:35 Ur Microscopic Review NOT INDICATED 02/21/18 21:35 Urine Culture Comments NOT INDICATED 02/21/18 21:35 - Diagnostic Imaging Results Diagnostic Imaging Results: positive: Final report reviewed Diagnostic Imaging Results Comments: CT abdomen/pelvis Impression: New distal small bowel obstruction. 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 Core Measures - Anticipated LOS I expect patient to be DC'd or transferred within 96 hours.: Yes - DVT/VTE - Prophylaxis VTE/DVT Prophylaxis med ordered at admit?: Yes
[2018-02-22] MEDS: SODIUM CHLORIDE 0.9% 1,000 ML IV SCH ×3 (01:30→18:44)
[2018-02-22] MEDS: SODIUM CHLORIDE FLUSH 0.9% 10 ML SYRINGE IVP SCH ×3 (01:31→14:28)
--- NOTE | 2018-02-22 02:55 | XRAY Report ---
Reason: NG Tube Placement Verification Procedure Date: 02/22/2018 Accession Number: [id number] / [id number] Procedure: XR - Chest 1 View X-Ray CPT Code: 49207 FULL RESULT: EXAM: CHEST RADIOGRAPHY EXAM DATE: 02/22/2018 02:46 AM. CLINICAL HISTORY: NG Tube Placement Verification. COMPARISON: CHEST 2 VIEW PA/LAT 02/16/2017. TECHNIQUE: 1 view. FINDINGS: Lungs/Pleura: Left basilar infiltrate and small effusion. No pneumothorax. Mediastinum: Within exam limitations, the cardiomediastinal contour is normal. Other: Enteric tube terminating in the stomach. IMPRESSION: Enteric tube terminating in the stomach. RADIA
[2018-02-22] MEDS: IPRATROPIUM/ALBUTEROL 3 ML NEB INH PRN ×2 (03:11→07:31)
[2018-02-22 06:35] LABS: BASOPHILS % (AUTO) 0.5 %; EOSINOPHILS % (AUTO) 0.2 %; HGB - HEMOGLOBIN 10.5 g/dL (12.0-16.0); LYMPHOCYTES # (AUTO) 0.5 10^3/uL (1.5-3.5); LYMPHOCYTES % (AUTO) 6.3 %; MEAN CORPUSCULAR HEMOGLOBIN 31.6 pg (27.0-31.0); MEAN CORPUSCULAR HGB CONC 32.7 g/dL (32.0-36.0); MEAN CORPUSCULAR VOLUME 96.7 fL (81.0-99.0); MEAN PLATELET VOLUME 7.7 fL (7.9-10.8); MONOCYTES # (AUTO) 0.9 10^3/uL (0.0-1.0); MONOCYTES % (AUTO) 11.3 %; NEUTROPHILS # (AUTO) 6.5 10^3/uL (1.5-6.6); NEUTROPHILS % (AUTO) 81.7 %; PLT - PLATELET COUNT 392 10^3/uL (130-450); RED BLOOD COUNT 3.33 10^6/uL (4.20-5.40); RED CELL DISTRIBUTION WIDTH 15.6 % (12.0-15.0); WHITE BLOOD COUNT 7.9 x10^3/uL (4.8-10.8)
[2018-02-22 06:46] LABS: ALBUMIN 3.5 g/dL (3.2-5.5); ALBUMIN/GLOBULIN RATIO 1.2 (1.0-2.2); CALCIUM 8.7 mg/dL (8.5-10.3); CREATININE 0.9 mg/dL (0.4-1.0); PHOSPHORUS 3.6 mg/dL (2.5-4.6); TOTAL PROTEIN 6.5 g/dL (6.7-8.2)
[2018-02-22] MEDS: BUDESONIDE 0.5 MG/2 ML NEB INH SCH ×2 (07:31→20:13)
[2018-02-22] MEDS: FORMOTEROL FUMARATE NEB 20 MCG/2 ML INH SCH ×2 (07:31→20:13)
[2018-02-22] MEDS: FAMOTIDINE 20 MG/50 ML 50 ML IV SCH (08:15)
[2018-02-22] MEDS: ENOXAPARIN 40 MG/0.4 ML SYRINGE SUBQ SCH (08:15)
[2018-02-22] MEDS: POLYETHYLENE GLYCOL 3350 17 GM PACKET PO SCH (08:21)
--- NOTE | 2018-02-22 12:31 | PROVIDER PROGRESS NOTE ---
Subjective - Prog Note Date Prog Note Date: 02/22/18 Prog Note Time: 12:30 - Subjective Pt reports feeling: Improved Subjective: Vangie complains of a sore throat and notes her nausea to be much improved. She denies any new symptoms such as chest pain, diarrhea, rashes, or a new cough. Current Medications - Current Medications Current Medications: Active Medications Acetaminophen (Tylenol) 650 mg PO Q4HR PRN PRN Reason: Pain 1 to 4 Albuterol/Ipratropium (Duoneb) 3 ml INH Q4HR PRN PRN Reason: Wheezing Last Admin: 02/22/18 07:31 Dose: 3 ml Budesonide (Pulmicort) 0.5 mg INH RTBID [facility] Last Admin: 02/22/18 07:31 Dose: 0.5 mg Enoxaparin Sodium (Lovenox) 40 mg SUBQ DAILY [facility] Last Admin: 02/22/18 08:15 Dose: 40 mg Formoterol Fumarate (Perforomist) 20 mcg INH RTBID [facility] Last Admin: 02/22/18 07:31 Dose: 20 mcg Famotidine (Pepcid 20 Mg/50 Ml) 50 mls @ 100 mls/hr IV DAILY [facility] Last Infusion: 02/22/18 08:45 Dose: Infused Sodium Chloride (Normal Saline 0.9%) 1,000 mls @ 100 mls/hr IV .Q10H [facility] Stop: 02/23/18 04:59 Last Admin: 02/22/18 08:15 Dose: 100 mls/hr Morphine Sulfate (Morphine (Carpuject)) 2 mg IVP Q2HR PRN PRN Reason: Pain 8 to 10 Ondansetron HCl (Zofran Inj) 4 mg IVP Q6HR PRN PRN Reason: Nausea / Vomiting Oxycodone HCl (Roxicodone) 5 mg PO Q4HR PRN PRN Reason: Pain 5 to 7 Oxycodone HCl (Roxicodone) 10 mg PO Q4HR PRN PRN Reason: Pain 8 to 10 Polyethylene Glycol (Miralax) 17 gm PO DAILY [facility] Last Admin: 02/22/18 08:21 Dose: Not Given Prochlorperazine Edisylate (Compazine Inj) 10 mg IVP Q6HR PRN PRN Reason: Nausea / Vomiting Promethazine HCl (Phenergan Inj) 25 mg IM Q6HR PRN PRN Reason: Nausea / Vomiting Sodium Chloride (Normal Saline Flush 0.9%) 10 ml IVP PRN PRN PRN Reason: NEEDED PER PROVIDER ORDERS Sodium Chloride (Normal Saline Flush 0.9%) 10 ml IVP 0100,0900,1700 ISAIAH Last Admin: 02/22/18 08:16 Dose: 10 ml Zolpidem Tartrate (Ambien) 5 mg PO QPM PRN PRN Reason: Insomnia Aspirin [Aspir 81] 81 mg ORAL DAILY 04/05/14 Metoprolol Tartrate 75 mg ORAL BID 04/05/14 Potassium Chloride [K-Dur] 40 meq ORAL DAILY 04/05/14 Albuterol Sulfate 1.25 mg INH BID 07/02/14 Ipratropium [Atrovent] 0.5 mg INH QID 07/02/14 Areds 02/16/17 Beclomethasone 80 Mcg [Qvar 80] 2 puffs PO BID 02/16/17 Furosemide [Lasix] 40 mg PO DAILY 02/16/17 Sertraline [Zoloft] 50 mg 12/21/17 hydrOXYzine HCl [Hydroxyzine HCl] 25 mg 12/21/17 Objective - Vital Signs/Intake & Output Reviewed Vital Signs: Yes Vital Signs: Vital Signs x48h Temp Pulse Pulse Resp BP Pulse Ox 02/22/18 08:07 36.6 C 92 20 122/44 L 98 02/22/18 07:43 36.4 C L 88 20 98 02/22/18 07:32 89 20 Intake & Output: Intake & Output 02/19/18 02/20/18 02/21/18 02/22/18 23:59 23:59 23:59 23:59 Intake Total 1267.5 Output Total 1100 Balance 167.5 - Objective General Appearance: positive: No acute distress, Alert, Lethargic Eyes: OU Conjunctivae pale ENT: positive: Pharyngeal erythema, Dry mucous membranes Neck: positive: Thyroid nml, No JVD, Lymphadenopathy (R), Lymphadenopathy (L), Stiff neck Respiratory: positive: Chest non-tender, No respiratory distress, Wheezes, Rhonchi Cardiovascular: positive: No gallop, Irregularly irregular, Systolic murmur, Diastolic murmur, Decreased pulse(s) Peripheral Pulses: 1+ Radial (R), 1+ Radial (L) Abdomen: positive: Tenderness, Guarding, Abnml bowel sounds, Other (rounded,) Back: positive: Nml inspection Skin: positive: No rash, Warm, Dry, Pallor Extremities: positive: Non-tender, Full ROM, Nml appearance Neurologic/Psychiatric: positive: CN's nml (2-12), Motor nml, Disoriented to time, Weakness, Sensory loss, Slurred/abnml speech, Depressed mood/affect Reflexes: Bicep (R): 2+, Bicep (L): 2+ - Lab Results Fish Bones: 02/23/18 05:40 02/23/18 05:40 Other Labs: Lab Results x24hrs 02/22/18 02/22/18 02/22/18 Range/Units 06:30 06:30 06:30 WBC 7.9 (4.8-10.8) x10^3/uL RBC 3.33 L (4.20-5.40) 10^6/uL Hgb 10.5 L (12.0-16.0) g/dL Hct 32.2 L (37.0-47.0) % MCV 96.7 (81.0-99.0) fL MCH 31.6 H (27.0-31.0) pg MCHC 32.7 (32.0-36.0) g/dL RDW 15.6 H (12.0-15.0) % Plt Count 392 (130-450) 10^3/uL MPV 7.7 L (7.9-10.8) fL Neut # (Auto) 6.5 (1.5-6.6) 10^3/uL Lymph # (Auto) 0.5 L (1.5-3.5) 10^3/uL Isabela # (Auto) 0.9 (0.0-1.0) 10^3/uL Eos # (Auto) 0.0 (0.0-0.7) 10^3/uL Baso # (Auto) 0.0 (0.0-0.1) 10^3/uL Absolute Nucleated RBC 0.00 x10^3/uL Nucleated RBC % 0.0 /100WBC Sodium 137 (135-145) mmol/L Potassium 4.4 (3.5-5.0) mmol/L Chloride 96 L (101-111) mmol/L Carbon Dioxide 29 (21-32) mmol/L Anion Gap 12.0 (6-13) BUN 32 H (6-20) mg/dL Creatinine 0.9 (0.4-1.0) mg/dL Estimated GFR (MDRD) 59 L (>89) Glucose 79 (70-100) mg/dL Lactic Acid 1.3 (0.5-2.2) mmol/L Calcium 8.7 (8.5-10.3) mg/dL Phosphorus 3.6 (2.5-4.6) mg/dL Magnesium 2.0 (1.7-2.8) mg/dL Total Bilirubin 1.0 (0.2-1.0) mg/dL AST 22 (10-42) IU/L ALT 23 (10-60) IU/L Alkaline Phosphatase 55 (42-121) IU/L Total Protein 6.5 L (6.7-8.2) g/dL Albumin 3.5 (3.2-5.5) g/dL Globulin 3.0 (2.1-4.2) g/dL Albumin/Globulin Ratio 1.2 (1.0-2.2) Lipase (22-51) U/L Urine Color Urine Clarity (CLEAR) Urine pH (5.0-7.5) PH Ur Specific [place] (1.002-1.030) Urine Protein (NEGATIVE) mg/dL Urine Glucose (UA) (NEGATIVE) mg/dL Urine Ketones (NEGATIVE) mg/dL Urine Occult Blood (NEGATIVE) Urine Nitrite (NEGATIVE) Urine Bilirubin (NEGATIVE) Urine Urobilinogen (NORMAL) E.U./dL Ur Leukocyte Esterase (NEGATIVE) Ur Microscopic Review Urine Culture Comments 02/21/18 02/21/18 02/21/18 Range/Units 21:35 20:56 20:56 WBC 6.6 (4.8-10.8) x10^3/uL RBC 3.76 L (4.20-5.40) 10^6/uL Hgb 11.5 L (12.0-16.0) g/dL Hct 35.7 L (37.0-47.0) % MCV 95.1 (81.0-99.0) fL MCH 30.6 (27.0-31.0) pg MCHC 32.2 (32.0-36.0) g/dL RDW 15.1 H (12.0-15.0) % Plt Count 466 H (130-450) 10^3/uL MPV 8.0 (7.9-10.8) fL Neut # (Auto) 5.7 (1.5-6.6) 10^3/uL Lymph # (Auto) 0.4 L (1.5-3.5) 10^3/uL [place] # (Auto) 0.5 (0.0-1.0) 10^3/uL Eos # (Auto) 0.0 (0.0-0.7) 10^3/uL Baso # (Auto) 0.0 (0.0-0.1) 10^3/uL Absolute Nucleated RBC 0.00 x10^3/uL Nucleated RBC % 0.1 /100WBC Sodium 137 (135-145) mmol/L Potassium 4.8 (3.5-5.0) mmol/L Chloride 91 L (101-111) mmol/L Carbon Dioxide 32 (21-32) mmol/L Anion Gap 14.0 H (6-13) BUN 33 H (6-20) mg/dL Creatinine 0.9 (0.4-1.0) mg/dL Estimated GFR (MDRD) 59 L (>89) Glucose 98 (70-100) mg/dL Lactic Acid (0.5-2.2) mmol/L Calcium 9.5 (8.5-10.3) mg/dL Phosphorus (2.5-4.6) mg/dL Magnesium (1.7-2.8) mg/dL Total Bilirubin 0.7 (0.2-1.0) mg/dL AST 19 (10-42) IU/L ALT 25 (10-60) IU/L Alkaline Phosphatase 64 (42-121) IU/L Total Protein 7.1 (6.7-8.2) g/dL Albumin 3.7 (3.2-5.5) g/dL Globulin 3.4 (2.1-4.2) g/dL Albumin/Globulin Ratio 1.1 (1.0-2.2) Lipase 26 (22-51) U/L Urine Color YELLOW Urine Clarity CLEAR (CLEAR) Urine pH 5.5 (5.0-7.5) PH Ur Specific [place] 1.020 (1.002-1.030) Urine Protein NEGATIVE (NEGATIVE) mg/dL Urine Glucose (UA) NEGATIVE (NEGATIVE) mg/dL Urine Ketones TRACE (NEGATIVE) mg/dL Urine Occult Blood NEGATIVE (NEGATIVE) Urine Nitrite NEGATIVE (NEGATIVE) Urine Bilirubin NEGATIVE (NEGATIVE) Urine Urobilinogen 0.2 (NORMAL) (NORMAL) E.U./dL Ur Leukocyte Esterase NEGATIVE (NEGATIVE) Ur Microscopic Review NOT INDICATED Urine Culture Comments NOT INDICATED ABX Reporting Has patient been on IV antibiotics over the past 48 hours?: No Assessment/Plan - Problem List (1) Small bowel obstruction Impression: Patient presented with abdominal pain, nausea and vomiting. She continues to have a rounded,tender abdomen. The CT of the patient's abdomen revealed a distal small bowel obstruction with transition point in the right pelvis. A surgical consult was made, but the patient and family are not in favor of a surgical intervention. Also, her lungs may not allow for any sedation needed for a surgery of this type. Plan: Keep NPO, continue gentle IVFs, NG tube with intermittent suction, IV antiemetics, IV pain medication for pain control (2) Oxygen dependent Impression: The patient wears 3L via nasal cannula chronically at home, which continues here. 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 Plan: Continue to monitor respiratory status. (3) Hypertension Impression: The patient is prescribed lasix, potassium and metoprolol at home. These are on hold as she was initially hypotensive and getting IVFs. Plan: Continue to monitor and consider IV forms of metoprolol if she becomes tachycardic. Qualifiers: Hypertension type: essential hypertension Qualified Code(s): I10 - Essential (primary) hypertension (4) COPD (chronic obstructive pulmonary disease) with emphysema Impression: The patient sees a recessing machine operator and is prescribed a duo-neb, combivent and Qvar at home. She is also on chronic oxygen at 3L at home. Her advanced COPD will hinder any surgical efforts as she will likely never progress to be extubated. She appears not to be in respiratory distress today upon exam. Plan: Continue to monitor. Qualifiers: Emphysema type: unspecified Qualified Code(s): J43.9 - Emphysema, unspecified
[2018-02-22] MEDS ORDERED: BENZOCAINE/MENTHOL LOZENGE MM PRN (14:00)
--- NOTE | 2018-02-22 22:41 | CONSULTATION NOTE ---
Referring Provider Name of Referring Provider:: Fred Antonio MD Consult Date: 02/22/18 Chief Complaint - Chief Complaint Chief Complaint: Small bowel obstruction History of Present Illness - Admitted From Admitted From:: [facility] ED - History Obtained From Records Reviewed: Yes History obtained from: Primarily the chart as the patient appears to have dementia Exam Limitations: Patient's apparent dementia - History of Present Illness HPI Comment/Other: I was called by Dr. Fred Antonio to evaluate this 87-year-old female for a small bowel obstruction that had been admitted last night/early this morning through [facility]'s emergency department. I was told by Dr. Twan Hopkins that the patient had a splenic mass that had enlarged and was concerning for bleeding. The bleeding did not appear to be acute. The bleeding also did not appear to be ongoing. The patient was afebrile, had a normal white blood cell count, and nothing seen on CT scan to suggest that the bowel is compromised and the transition point was thought to be in the pelvis. Upon seeing the patient today, and she was evaluated in room 2213 at [facility]'s MedSurg unit she is adamant that she does not wish to have surgery. She states that she is feeling better. She tells me that she has a tumor that Dr. Ervin evaluated for and Dr. Ervin stated that she should not have surgery. I explained to her in very clear terms that what Dr. Ervin had seen her for (the splenic mass) was not what I was seeing her for. I explained, very clearly, that I was seeing her for her small bowel obstruction. The patient told me that she was feeling much better I did not think that she wanted surgery. I asked her if she was expecting to from her splenic mass and she stated that she did. I then asked her why she was a "full code" as what she was saying with this was that she wanted to from her tumor but when the time came to from her tumor she wanted us keep her alive. She explained to me that I was confused because this decision was regarding her health. In very clear terms I explained to her that medically I was confused by her choice. I asked her kindly to reconsider. 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 She states that she was born and raised on [address] and has lived here all her life. She lives with her son. She is her a few years ago. She has 3 children all of whom live on [address]. She states that she uses a walker at home and is very limited on her activities of daily living due to her chronic emphysema and shortness of breath. She states that she quit smoking in November 2017 prior to that she smoked a pack a day for more than 70 years. She also used to be a heavy drinker but quit drinking about 20 years ago. She denies any illicit drug use. She does state that she tried marijuana once in her life with her brother but did not enjoy it. - POLST Patient has POLST: No POLST Status: Full Code Meds/Allgy - Home Medications Home Medications: Ambulatory Orders Medication Instructions Recorded Confirmed Aspirin [Aspir 81] 81 mg ORAL DAILY 04/05/14 02/22/18 Metoprolol Tartrate 75 mg ORAL DAILY 04/05/14 02/22/18 Beclomethasone 80 Mcg [Qvar 80] 1 puffs PO BID 02/16/17 02/22/18 Furosemide [Lasix] 40 mg PO DAILY 02/16/17 02/22/18 Sertraline [Zoloft] 50 mg PO DAILY 12/21/17 02/22/18 Ipratropium/Albuterol [Combivent 1 puffs INH Q4H PRN 02/22/18 02/22/18 Respimat] Ipratropium/Albuterol [Duoneb] 3 ml INH QID 02/22/18 02/22/18 Metoprolol Tartrate 50 mg PO QPM 02/22/18 02/22/18 Potassium Chloride 20 meq PO DAILY 02/22/18 02/22/18 - Allergies Allergies/Adverse Reactions: Allergies Allergy/AdvReac Type Severity Reaction Status Date / Time levofloxacin [From Levaquin] AdvReac Unknown Verified 02/21/18 20:21 Review of Systems - Other Findings Other Findings: I was unable to have a meaningful conversation regarding her review of systems. Exam - Vital Signs Reviewed Vital Signs: Yes Vital Signs: Vital Signs x48h Temp Pulse Pulse Resp BP Pulse Ox 02/22/18 20:14 90 18 02/22/18 16:25 36.9 C 90 18 127/88 H 100 - Physical Exam General Appearance: positive: No acute distress, Other (Wearing knee-high black socks, smelling of urine, trying to climb out of bed on her own, mildly disheveled.) Eyes Bilateral: positive: No lid inflammation, Conjunctivae nml, No scleral icterus ENT: positive: Dry mucous membranes, Other (NG tube in place.) Neck: positive: Trachea midline Respiratory: positive: Chest non-tender, No respiratory distress, Breath sounds nml Cardiovascular: positive: Regular rate & rhythm Abdomen: positive: Non-tender, Other (Distended, without peritoneal signs, decreased bowel sounds.) Skin: positive: Pallor (Slightly.) Extremities: positive: Non-tender Conclusion/Plan - Diagnosis Diagnosis: Small bowel obstruction an 87-year-old female with a 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 Primitivo Ervin against surgery - Plan Plan: Currently, conservative measures are in place to see whether not we can resolve the small bowel obstruction without surgery. If conservative measures do not resolve the small bowel obstruction the question will then have to be asked w hether or not it makes sense to resolve the small bowel obstruction with exploratory laparotomy. Additional questions would be whether or not it would make sense to look at the splenic mass during the exploratory laparotomy. I agree with Dr. Primitivo Ervin that removal of this mass is unlikely to si gnificantly increase her life but if surgically we must be in her abdomen (for other reasons) does not make any sense to ignore the mass? Additional discussions will need to be held with her family. The plan then is for watchful waiting with continued IV fluids, NG decompression, and serial examinations. 45 minutes of [id number] time spent with the patient, the majority of which was spent in discussion, coordination of care, and completion of the requisite paperwork - Lab Results Lab results reviewed: Yes Fish Bones: 02/22/18 06:30 02/22/18 06:30
[2018-02-23] MEDS: SODIUM CHLORIDE FLUSH 0.9% 10 ML SYRINGE IVP SCH ×3 (03:12→17:43)
[2018-02-23] MEDS: DEXTROSE 5%-0.9% NACL 1,000 ML IV SCH ×2 (05:03→18:42)
[2018-02-23 06:10] LABS: BASOPHILS % (AUTO) 0.5 %; EOSINOPHILS # (AUTO) 0.1 10^3/uL (0.0-0.7); EOSINOPHILS % (AUTO) 2.1 %; HGB - HEMOGLOBIN 9.4 g/dL (12.0-16.0); LYMPHOCYTES # (AUTO) 0.4 10^3/uL (1.5-3.5); LYMPHOCYTES % (AUTO) 8.4 %; MEAN CORPUSCULAR HEMOGLOBIN 31.4 pg (27.0-31.0); MEAN CORPUSCULAR HGB CONC 32.1 g/dL (32.0-36.0); MEAN CORPUSCULAR VOLUME 97.7 fL (81.0-99.0); MEAN PLATELET VOLUME 7.5 fL (7.9-10.8); MONOCYTES # (AUTO) 0.6 10^3/uL (0.0-1.0); MONOCYTES % (AUTO) 12.5 %; NEUTROPHILS # (AUTO) 3.6 10^3/uL (1.5-6.6); NEUTROPHILS % (AUTO) 76.5 %; PLT - PLATELET COUNT 344 10^3/uL (130-450); RED CELL DISTRIBUTION WIDTH 15.6 % (12.0-15.0); WHITE BLOOD COUNT 4.7 x10^3/uL (4.8-10.8)
[2018-02-23 06:30] LABS: ALBUMIN 2.8 g/dL (3.2-5.5); BILIRUBIN,TOTAL 0.8 mg/dL (0.2-1.0); CALCIUM 8.9 mg/dL (8.5-10.3); CREATININE 0.5 mg/dL (0.4-1.0); PHOSPHORUS 2.5 mg/dL (2.5-4.6); TOTAL PROTEIN 5.5 g/dL (6.7-8.2)
[2018-02-23] MEDS: FORMOTEROL FUMARATE NEB 20 MCG/2 ML INH SCH (08:07)
[2018-02-23] MEDS: BUDESONIDE 0.5 MG/2 ML NEB INH SCH (08:07)
[2018-02-23] MEDS: ENOXAPARIN 40 MG/0.4 ML SYRINGE SUBQ SCH (09:16)
[2018-02-23] MEDS: FAMOTIDINE 20 MG/50 ML 50 ML IV SCH (09:16)
[2018-02-23] MEDS: POLYETHYLENE GLYCOL 3350 17 GM PACKET PO SCH (09:17)
--- NOTE | 2018-02-23 11:45 | CONSULTATION NOTE ---
Palliative Care Consultation - Referral Referring Provider: Lan DONALDSON Time of Visit: Referral setting: Hospitalized patient Referral Reason: SBO/Abdominal tumor/Goals of Care - Information Sources Records reviewed: RN notes reviewed, Previous records reviewed History/Review of Systems obtained from: Patient, Family (Patient's two children present Tessa and Castro; patient able to participate in conference) Exam limitations: Clinical condition (patient able to verbalize understanding with good accuracy during visit; some STM issues defers to family) - History of Present Illness Brief History of Present Illness: This is an 87-year-old woman who has a recent diagnosis of a splenic tumor, who had had a consult with the outcome being a watch and wait. She had presented with vague left lower abdominal pain and had abdominal series in August without cause for concern. 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 She was acutely admitted on 02/21 for nausea vomiting and severe right upper quadrant pain, no vomiting was limited. On follow-up CT scan the mass is enlarged to 14.3 x 12.2 x 9.6 cm with concern for hemorrhage into the mass along 1 of the borders. She also present with small bowel obstruction, unclear if this is precipitated related to the mass or previous surgeries and is adhesions. Patient has actually been declining over the last several months, most notable decline was with her fall. She had previously been actually quite independent, now she is mostly recliner bound, her son provides assistance with setting up nebulizer, meals, and overseeing her care. She does have a commode, but both daughter and son note functional decline. Patient also has underlying emphysema, she is oxygen dependent on 3-1/2 L at home, gets easily short of breath, and is uses her nebulizers and inhalers with relief. Palliative care has been asked to meet with patient and her family regarding goals of care, and establishing rapport. Medical/Surgical History - Past Medical History Cardiovascular: reports: Hypertension Respiratory: reports: Emphysema (On 4L of home O2) Neuro: None, Other (some STM issues) Endocrine/Autoimmune: reports: None GI: reports: Hiatal hernia, Other (new abdominal tumor; not surgical candidate) MARKETING PROGRAM COORDINATOR: reports: None : reports: None HEENT: reports: None Psych: reports: Anxiety Musculoskeletal: reports: Fatigue (has had decline in functional status and activity tolerance for about 4-5 months since acute fall) Derm: reports: None Other Past Medical History: tumor on the spleen - Past Surgical History General: reports: Appendectomy, Hiatal hernia repair /MARKETING PROGRAM COORDINATOR: reports: Tubal ligation - Substance History Use: Uses substance without health or social issues: Tobacco (history of smoking recently quit; no drinking) Social History - Living Situation Living arrangement: At home Living Situation: With family Support System: Patient lives at home with her son support, she has been fairly independent up to this point in time until the last 4-5 months when she had had a significant fall. She does have a daughter who lives nearby provide support, and many grandchildren as well. Family History - Family History Family History: Mother: , COPD/Emphysema, Father: , COPD/Emphysema, Brother: , COPD/Emphysema Medications/Allergies - Medications Active Medication List: Active Medications Acetaminophen (Tylenol) 650 mg PO Q4HR PRN PRN Reason: Pain 1 to 4 Albuterol/Ipratropium (Duoneb) 3 ml INH Q4HR PRN PRN Reason: Wheezing Last Admin: 02/22/18 07:31 Dose: 3 ml Budesonide (Pulmicort) 0.5 mg INH RTBID [facility] Last Admin: 02/23/18 08:07 Dose: 0.5 mg Enoxaparin Sodium (Lovenox) 40 mg SUBQ DAILY [facility] Last Admin: 02/23/18 09:16 Dose: 40 mg Formoterol Fumarate (Perforomist) 20 mcg INH RTBID [facility] Last Admin: 02/23/18 08:07 Dose: 20 mcg Famotidine (Pepcid 20 Mg/50 Ml) 50 mls @ 100 mls/hr IV DAILY [facility] Last Infusion: 02/23/18 09:46 Dose: Infused Dextrose/Sodium Chloride (D5ns) 1,000 mls @ 83.333 mls/hr IV .Q12H [facility] Last Admin: 02/23/18 05:03 Dose: 83.333 mls/hr Morphine Sulfate (Morphine (Carpuject)) 2 mg IVP Q2HR PRN PRN Reason: Pain 8 to 10 Ondansetron HCl (Zofran Inj) 4 mg IVP Q6HR PRN PRN Reason: Nausea / Vomiting Oxycodone HCl (Roxicodone) 5 mg PO Q4HR PRN PRN Reason: Pain 5 to 7 Oxycodone HCl (Roxicodone) 10 mg PO Q4HR PRN PRN Reason: Pain 8 to 10 Polyethylene Glycol (Miralax) 17 gm PO DAILY [facility] Last Admin: 02/23/18 09:17 Dose: Not Given Prochlorperazine Edisylate (Compazine Inj) 10 mg IVP Q6HR PRN PRN Reason: Nausea / Vomiting Promethazine HCl (Phenergan Inj) 25 mg IM Q6HR PRN PRN Reason: Nausea / Vomiting Sodium Chloride (Normal Saline Flush 0.9%) 10 ml IVP PRN PRN PRN Reason: NEEDED PER PROVIDER ORDERS Sodium Chloride (Normal Saline Flush 0.9%) 10 ml IVP 0100,0900,1700 [facility] Last Admin: 02/23/18 09:17 Dose: Not Given Throat Lozenges (Cepacol) 1 lozenge MM Q2HR PRN PRN Reason: Throat pain Last Admin: 02/22/18 14:28 Dose: 1 lozenge Zolpidem Tartrate (Ambien) 5 mg PO QPM PRN PRN Reason: Insomnia Aspirin [Aspir 81] 81 mg ORAL DAILY 04/05/14 Metoprolol Tartrate 75 mg ORAL DAILY 04/05/14 Beclomethasone 80 Mcg [Qvar 80] 1 puffs PO BID 02/16/17 Furosemide [Lasix] 40 mg PO DAILY 02/16/17 Sertraline [Zoloft] 50 mg PO DAILY 12/21/17 Ipratropium/Albuterol [Combivent Respimat] 1 puffs INH Q4H PRN 02/22/18 Ipratropium/Albuterol [Duoneb] 3 ml INH QID 02/22/18 Metoprolol Tartrate 50 mg PO QPM 02/22/18 Potassium Chloride 20 meq PO DAILY 02/22/18 - Allergies Allergies/Adverse Reactions: Allergies Allergy/AdvReac Type Severity Reaction Status Date / Time levofloxacin [From Levaquin] AdvReac Unknown Verified 02/21/18 20:21 Review of Systems - Constitutional Constitutional: reports: Fatigue - Ears, Nose & Throat Ears, Nose & Throat: reports: Sore throat (attributes to current gtube; painful), Dry mouth - Cardiovascular Cardiovascular: reports: Edema (improved this last year), Exertional dyspnea, Decr. exercise tolerance - Respiratory Respiratory: reports: SOB at rest, SOB with exertion - Gastrointestinal Gastrointestinal: reports: Abdominal pain (low grade and uncomfortable for several months/weeks; acute pain prior to ED visit), Abdominal distention (reports distension for several months), Nausea, Vomiting - Musculoskeletal Musculoskeletal: reports: Stiffness, Muscle weakness - Integumentary Integumentary: reports: Dryness - Neurological Neurological: reports: General weakness, Memory problems (mild) - Psychiatric Psychiatric: reports: Anxiety (admits to anxiety issues; did very well with serious conversation) - Hematologic/Lymphatic Hematologic/Lymphatic: reports: Anemia - All Other Systems All Other Systems: reports: Reviewed and negative Physical Exam - Vital Signs Vital Signs: Vital Signs x48h Temp Pulse Pulse Resp BP Pulse Ox 02/23/18 08:07 86 18 02/23/18 08:00 36.6 C 89 20 136/45 H 100 - Physical Exam General Appearance: positive: Mild distress Eyes Bilateral: positive: Normal inspection ENT: positive: Dry mucous membranes, Other (Gtube) Neck: positive: No JVD, Trachea midline Cardiovascular: positive: Regular rate & rhythm Respiratory: positive: Diminished throughout Abdomen: positive: Soft, Abnml bowel sounds, Tenderness, Distended Skin: positive: Pallor, Dryness Extremities: positive: Pedal edema (trace to 1+ plus up to knees) Neurologic/Psychiatric: positive: Oriented x3, Mood/affect nml, Weakness Palliative Care - POLST Patient has POLST: No POLST Status: DNR Pain: Pain improved, Location (throat discomfort with tube; abdominal pain resolved with Gtube; denies pain at time of visit other than with palpation/tenderness) Anxiety: Moderate (4-6) (has been controlled on her Zoloft, currently off) Performance Status: Patient recent baseline is mostly chair bound in a recliner, does walks short distance to the bathroom, and also has available commode. She does do mostly sponge baths at this point in time, as far as her exercise and tolerance for activity. She does reports fairly severe lower extremity weakness she noted earlier when transferring to the commode. This is actually been a fairly significant decline over the last few months. - Palliative Care Discussion: Patient is able to verbalize understanding she has an inoperable tumor that is going to lead to her ultimate decline. She does understand currently she is quite ill, and is obstructed, and concern for what the final outcome regarding this might be. I did share my conversation with Dr. Galdamez that we would wait another 24 hours before any decision needed to be made, and that it wasn't clear if mass and SBO were connected at this time. Counseling provided to Laura and Castro, and patient wanting to participate as well. We discussed multiple scenarios, patient is quite hot to trot to go home. We did discuss it is not very comfortable going home with an NG tube, but often if we stop fluids, use medications, can keep people comfortable but it would be in the context of an end-of-life event. The other choices weighing benefits and burdens of moving forward with surgical intervention, recognizing she is quite frail, and the risks have not gone away. The questions posed were if she could have something other than general anesthesia, I did not think so as it was a GI surgery, versus and ortho with option of spinal. But would allow surgeon to address this question. The hope is that it will resolve, even if it does resolve, we are still left with this mass that obviously is life-threatening and enlarging fairly quickly. I would recommend given their goals are to keep her at home and focus on comfort at that point in time, to discharge her with hospice support. Counseling provided on the hospice benefit, hospice team, and goals of care in the context of focus on comfort only and identified 6 months or less. Given patient's history of decline, enlarging mass, and multiple comorbidities she most likely would meet hospice criteria. Agreed would revisit this ongoing conversation as a plan is made for the small bowel obstruction, discussed the role of palliative care in the context of managing goals with medical care, and support to address questions as they arise. Results - Lab Results Lab results reviewed: Yes Fish Bones: 02/23/18 05:40 02/23/18 05:40 Lab and Imaging Results: Lab Results x24hrs 02/23/18 02/23/18 Range/Units 05:40 05:40 WBC 4.7 L (4.8-10.8) x10^3/uL RBC 3.00 L (4.20-5.40) 10^6/uL Hgb 9.4 L (12.0-16.0) g/dL Hct 29.3 L (37.0-47.0) % MCV 97.7 (81.0-99.0) fL MCH 31.4 H (27.0-31.0) pg MCHC 32.1 (32.0-36.0) g/dL RDW 15.6 H (12.0-15.0) % Plt Count 344 (130-450) 10^3/uL MPV 7.5 L (7.9-10.8) fL Neut # (Auto) 3.6 (1.5-6.6) 10^3/uL Lymph # (Auto) 0.4 L (1.5-3.5) 10^3/uL Crawford # (Auto) 0.6 (0.0-1.0) 10^3/uL Eos # (Auto) 0.1 (0.0-0.7) 10^3/uL Baso # (Auto) 0.0 (0.0-0.1) 10^3/uL Absolute Nucleated RBC 0.00 x10^3/uL Nucleated RBC % 0.0 /100WBC Sodium 143 (135-145) mmol/L Potassium 3.9 (3.5-5.0) mmol/L Chloride 106 (101-111) mmol/L Carbon Dioxide 28 (21-32) mmol/L Anion Gap 9.0 (6-13) BUN 16 (6-20) mg/dL Creatinine 0.5 (0.4-1.0) mg/dL Estimated GFR (MDRD) 117 (>89) Glucose 62 L (70-100) mg/dL Calcium 8.9 (8.5-10.3) mg/dL Phosphorus 2.5 (2.5-4.6) mg/dL Magnesium 2.0 (1.7-2.8) mg/dL Total Bilirubin 0.8 (0.2-1.0) mg/dL AST 18 (10-42) IU/L ALT 24 (10-60) IU/L Alkaline Phosphatase 47 (42-121) IU/L Total Protein 5.5 L (6.7-8.2) g/dL Albumin 2.8 L (3.2-5.5) g/dL Globulin 2.7 (2.1-4.2) g/dL Albumin/Globulin Ratio 1.0 (1.0-2.2) Impression and Recommendations - Palliative Care Impression: This is a spunky 87-year-old woman who has an enlarging splenic/retroperitoneal mass. She presents acutely with a small bowel obstruction, has underlying comorbidities of severe emphysema, fragility, and recent functional decline. Palliative care to provide support regarding defining goals of care, and supporting patient and family and transitions. Recommendations/Counseling Done: 1. Dyspnea. Patient does have underlying emphysema, she is quite dependent on her nebulizers and inhalers, she does use a fan at home. Would recommend setting up fan in her room to assist with patient's anxiety and feeling of br eathlessness. 2. Anxiety. Patient on Zoloft at home, she reports currently she is managing her anxiety though it has been problematic in the past. Would recommend making Lorazepam 0.25 mg available if patient does have increasing or escalating anxiety. 3. Advanced care planning. Patient does present with small bowel obstruction, currently getting medical management, family is hoping for the best with resolution and no surgical intervention. Counseling done regarding the continuum of care, including home management of small bowel obstruction and end of life care, surgical risks and support given patient's frailty, patient is concerned about increased dependence and family is concerned regarding complications, and given her underlying retroperitoneal/splenic mass consider hospice at discharge no matter what the outcome is. We will continue to provide support and counseling regarding the continuum has we wait to see if the SBO is going to resolve. Time Spent: 60 minutes with greater than 50% of this done in counseling regarding establishing rapport, defining goals of care, exploring continuum of options and anticipatory guidance. Patient of care and follow-up with hospitalist, surgeon, and social work department
--- NOTE | 2018-02-23 17:23 | PROVIDER PROGRESS NOTE ---
Subjective - Prog Note Date Prog Note Date: 02/23/18 Prog Note Time: 16:00 - Subjective Pt reports feeling: No change Subjective: Vangie continues to complain of throat soreness and states that her abdomen is more comfortable. She denies any new symptoms such as chest pain, rashes, increased shortness of breath, or increased cough. Family is at the bedside. Current Medications - Current Medications Current Medications: Active Medications Acetaminophen (Tylenol) 650 mg PO Q4HR PRN PRN Reason: Pain 1 to 4 Albuterol/Ipratropium (Duoneb) 3 ml INH Q4HR PRN PRN Reason: Wheezing Last Admin: 02/24/18 05:52 Dose: 3 ml Budesonide (Pulmicort) 0.5 mg INH RTBID [facility] Last Admin: 02/24/18 05:51 Dose: 0.5 mg Enoxaparin Sodium (Lovenox) 40 mg SUBQ DAILY [facility] Last Admin: 02/24/18 08:01 Dose: 40 mg Formoterol Fumarate (Perforomist) 20 mcg INH RTBID [facility] Last Admin: 02/24/18 05:51 Dose: 20 mcg Famotidine (Pepcid 20 Mg/50 Ml) 50 mls @ 100 mls/hr IV DAILY [facility] Last Infusion: 02/24/18 09:03 Dose: Infused Dextrose/Sodium Chloride (D5ns) 1,000 mls @ 83.333 mls/hr IV .Q12H [facility] Last Infusion: 02/24/18 09:03 Dose: 83.333 mls/hr Morphine Sulfate (Morphine (Carpuject)) 2 mg IVP Q2HR PRN PRN Reason: Pain 8 to 10 Ondansetron HCl (Zofran Inj) 4 mg IVP Q6HR PRN PRN Reason: Nausea / Vomiting Last Admin: 02/23/18 17:10 Dose: 4 mg Oxycodone HCl (Roxicodone) 5 mg PO Q4HR PRN PRN Reason: Pain 5 to 7 Oxycodone HCl (Roxicodone) 10 mg PO Q4HR PRN PRN Reason: Pain 8 to 10 Polyethylene Glycol (Miralax) 17 gm PO DAILY [facility] Last Admin: 02/24/18 07:18 Dose: Not Given Prochlorperazine Edisylate (Compazine Inj) 10 mg IVP Q6HR PRN PRN Reason: Nausea / Vomiting Promethazine HCl (Phenergan Inj) 25 mg IM Q6HR PRN PRN Reason: Nausea / Vomiting Sodium Chloride (Normal Saline Flush 0.9%) 10 ml IVP PRN PRN PRN Reason: NEEDED PER PROVIDER ORDERS Last Admin: 02/24/18 06:58 Dose: 10 ml Sodium Chloride (Normal Saline Flush 0.9%) 10 ml IVP 0100,0900,1700 [facility] Last Admin: 02/24/18 07:18 Dose: Not Given Throat Lozenges (Cepacol) 1 lozenge MM Q2HR PRN PRN Reason: Throat pain Last Admin: 02/22/18 14:28 Dose: 1 lozenge Zolpidem Tartrate (Ambien) 5 mg PO QPM PRN PRN Reason: Insomnia Aspirin [Aspir 81] 81 mg ORAL DAILY 04/05/14 Metoprolol Tartrate 75 mg ORAL DAILY 04/05/14 Beclomethasone 80 Mcg [Qvar 80] 1 puffs PO BID 02/16/17 Furosemide [Lasix] 40 mg PO DAILY 02/16/17 Sertraline [Zoloft] 50 mg PO DAILY 12/21/17 Ipratropium/Albuterol [Combivent Respimat] 1 puffs INH Q4H PRN 02/22/18 Ipratropium/Albuterol [Duoneb] 3 ml INH QID 02/22/18 Metoprolol Tartrate 50 mg PO QPM 02/22/18 Potassium Chloride 20 meq PO DAILY 02/22/18 Objective - Vital Signs/Intake & Output Reviewed Vital Signs: Yes Vital Signs: Vital Signs x48h Temp Pulse Resp BP Pulse Ox 02/23/18 16:00 36.6 C 90 18 148/51 H 100 Intake & Output: Intake & Output 02/20/18 02/21/18 02/22/18 02/23/18 23:59 23:59 23:59 23:59 Intake Total 2267.5 2050 Output Total 1650 300 Balance 617.5 1750 - Objective General Appearance: positive: Alert, Moderate distress, Lethargic Eyes Bilateral: positive: PERRL Eyes: OU Conjunctivae pale ENT: positive: Pharyngeal erythema, Dry mucous membranes Neck: positive: No JVD, Stiff neck Respiratory: positive: Chest non-tender, Wheezes, Rhonchi Cardiovascular: positive: No gallop, Irregularly irregular, Systolic murmur Peripheral Pulses: 1+ Radial (R), 1+ Radial (L) Abdomen: positive: Tenderness, Guarding, Abnml bowel sounds, Other (firm, rounded) Back: positive: Nml inspection Skin: positive: No rash, Warm, Dry Extremities: positive: Non-tender, Full ROM, Pedal edema (trace) Neurologic/Psychiatric: positive: Disoriented to place, Disoriented to time, Weakness, Sensory loss, Slurred/abnml speech, Depressed mood/affect Reflexes: Bicep (R): 2+, Bicep (L): 2+ - Lab Results Fish Bones: 02/24/18 05:08 02/24/18 05:08 Other Labs: Lab Results x24hrs 02/23/18 02/23/18 Range/Units 05:40 05:40 WBC 4.7 L (4.8-10.8) x10^3/uL RBC 3.00 L (4.20-5.40) 10^6/uL Hgb 9.4 L (12.0-16.0) g/dL Hct 29.3 L (37.0-47.0) % MCV 97.7 (81.0-99.0) fL MCH 31.4 H (27.0-31.0) pg MCHC 32.1 (32.0-36.0) g/dL RDW 15.6 H (12.0-15.0) % Plt Count 344 (130-450) 10^3/uL MPV 7.5 L (7.9-10.8) fL Neut # (Auto) 3.6 (1.5-6.6) 10^3/uL Lymph # (Auto) 0.4 L (1.5-3.5) 10^3/uL Ogle # (Auto) 0.6 (0.0-1.0) 10^3/uL Eos # (Auto) 0.1 (0.0-0.7) 10^3/uL Baso # (Auto) 0.0 (0.0-0.1) 10^3/uL Absolute Nucleated RBC 0.00 x10^3/uL Nucleated RBC % 0.0 /100WBC Sodium 143 (135-145) mmol/L Potassium 3.9 (3.5-5.0) mmol/L Chloride 106 (101-111) mmol/L Carbon Dioxide 28 (21-32) mmol/L Anion Gap 9.0 (6-13) BUN 16 (6-20) mg/dL Creatinine 0.5 (0.4-1.0) mg/dL Estimated GFR (MDRD) 117 (>89) Glucose 62 L (70-100) mg/dL Calcium 8.9 (8.5-10.3) mg/dL Phosphorus 2.5 (2.5-4.6) mg/dL Magnesium 2.0 (1.7-2.8) mg/dL Total Bilirubin 0.8 (0.2-1.0) mg/dL AST 18 (10-42) IU/L ALT 24 (10-60) IU/L Alkaline Phosphatase 47 (42-121) IU/L Total Protein 5.5 L (6.7-8.2) g/dL Albumin 2.8 L (3.2-5.5) g/dL Globulin 2.7 (2.1-4.2) g/dL Albumin/Globulin Ratio 1.0 (1.0-2.2) ABX Reporting Has patient been on IV antibiotics over the past 48 hours?: No Assessment/Plan - Problem List (1) Small bowel obstruction Impression: Patient presented with abdominal pain, nausea and vomiting. She continues to have a rounded,tender abdomen. The CT of the patient's abdomen revealed a distal small bowel obstruction with transition point in the right pelvis. Palliative care is now in place as the family and patient choose non-surgical options and care is proceeding toward comfort. Plan: Keep NPO, continue gentle IVFs, NG tube with intermittent suction, IV antiemetics, IV pain medication for pain control (2) Oxygen dependent Impression: The patient wears 3L via nasal cannula chronically at home, which continues here. 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 Plan: Continue to monitor respiratory status. (3) Hypertension Impression: The patient is prescribed lasix, potassium and metoprolol at home. These are on hold as she was initially hypotensive and getting IVFs. Plan: Continue to monitor and consider IV forms of metoprolol if she becomes tachycardic. Qualifiers: Hypertension type: essential hypertension Qualified Code(s): I10 - Essen tial (primary) hypertension (4) COPD (chronic obstructive pulmonary disease) with emphysema Impression: The patient sees a licensed nuclear control room operator and is prescribed a duo-neb, combivent and Qvar at home. She is also on chronic oxygen at 3L at home. Her advanced COPD will hinder any surgical efforts as she will likely never progress to be extubated. She appears not to be in respiratory distress. Plan: Continue to monitor. Qualifiers: Emphysema type: unspecified Qualified Code(s): J43.9 - Emphysema, unsp ecified (5) Sore throat Impression: The patient's primary complaint is a sore throat for which she can have throat spray or lozenges. This is likely a consequence of the NG tube that remains in place. Plan: Continue oral care and offer PRN meds. (6) Confusion state Impression: The patient has been more forgetful that has become worse over the past few months. She can recognize her family, but does not seem to remember my visits from day to day. She has not attempted to get out to bed and has been comforta ble. This is likely a consequence of her failing health and fragility. Plan: Continue to monitor. (7) Splenic mass Impression: The patient is noted to have splenic mass that has increased in size since her last imaging and is now 14.3 x 12.2 x 9.6 cm, previously 9.2 x 9.2 x 7.2 cm. There is also evidence of hemorrhage to the lateral margin. The patient complained of abdominal pain leading to this admission, and this could be a contributing factor. She appears hemodynamically stable, so continued bleeding is no longer a concern. Plan: Await surgery recommendations and monitor for signs of deterioration.
[2018-02-24] MEDS: SODIUM CHLORIDE FLUSH 0.9% 10 ML SYRINGE IVP SCH ×3 (00:39→19:30)
[2018-02-24] MEDS: BUDESONIDE 0.5 MG/2 ML NEB INH SCH ×3 (01:17→20:25)
[2018-02-24] MEDS: FORMOTEROL FUMARATE NEB 20 MCG/2 ML INH SCH ×3 (01:20→20:25)
--- NOTE | 2018-02-24 02:45 | PROVIDER PROGRESS NOTE ---
Subjective - General Admit Date: 02/21/18 - Review of Systems General: positive: Other (The patient is demented with waxing and waning mentation. She is not actively complaining or in pain.) All Other Systems: positive: Reviewed and negative Objective - Patient Data Reviewed Vital Signs: Yes Vital Signs: Vital Signs x48h Temp Pulse Resp BP Pulse Ox 02/24/18 00:00 37.0 C 93 16 154/69 H 96 Weight: Weight 02/22/18 02/23/18 02/24/18 23:59 23:59 23:59 Weight (kg) 53 kg Intake & Output: Intake and Output Totals x24h 02/22/18 02/23/18 02/24/18 23:59 23:59 23:59 Intake Total 2267.5 2050 Output Total 1650 400 Balance 617.5 1650 - Lab Results Lab Results: 02/24/18 05:08 02/24/18 05:08 Other Lab Results: Lab Results x24hrs 02/23/18 02/23/18 Range/Units 05:40 05:40 WBC 4.7 L (4.8-10.8) x10^3/uL RBC 3.00 L (4.20-5.40) 10^6/uL Hgb 9.4 L (12.0-16.0) g/dL Hct 29.3 L (37.0-47.0) % MCV 97.7 (81.0-99.0) fL MCH 31.4 H (27.0-31.0) pg MCHC 32.1 (32.0-36.0) g/dL RDW 15.6 H (12.0-15.0) % Plt Count 344 (130-450) 10^3/uL MPV 7.5 L (7.9-10.8) fL Neut # (Auto) 3.6 (1.5-6.6) 10^3/uL Lymph # (Auto) 0.4 L (1.5-3.5) 10^3/uL Harris # (Auto) 0.6 (0.0-1.0) 10^3/uL Eos # (Auto) 0.1 (0.0-0.7) 10^3/uL Baso # (Auto) 0.0 (0.0-0.1) 10^3/uL Absolute Nucleated RBC 0.00 x10^3/uL Nucleated RBC % 0.0 /100WBC Sodium 143 (135-145) mmol/L Potassium 3.9 (3.5-5.0) mmol/L Chloride 106 (101-111) mmol/L Carbon Dioxide 28 (21-32) mmol/L Anion Gap 9.0 (6-13) BUN 16 (6-20) mg/dL Creatinine 0.5 (0.4-1.0) mg/dL Estimated GFR (MDRD) 117 (>89) Glucose 62 L (70-100) mg/dL Calcium 8.9 (8.5-10.3) mg/dL Phosphorus 2.5 (2.5-4.6) mg/dL Magnesium 2.0 (1.7-2.8) mg/dL Total Bilirubin 0.8 (0.2-1.0) mg/dL AST 18 (10-42) IU/L ALT 24 (10-60) IU/L Alkaline Phosphatase 47 (42-121) IU/L Total Protein 5.5 L (6.7-8.2) g/dL Albumin 2.8 L (3.2-5.5) g/dL Globulin 2.7 (2.1-4.2) g/dL Albumin/Globulin Ratio 1.0 (1.0-2.2) - Current Medications Current Medications: Current Medications Generic Name Dose Route Start Last Admin Trade Name Freq PRN Reason Stop Dose Admin Albuterol/Ipratropium 3 ml 02/21/18 23:03 02/22/18 07:31 Duoneb INH 3 ml Q4HR PRN Administration Wheezing Budesonide 0.5 mg 02/22/18 07:00 02/24/18 01:17 Pulmicort INH 0.5 mg RTBID ISAIAH Administration Enoxaparin Sodium 40 mg 02/22/18 09:00 02/23/18 09:16 Lovenox SUBQ 40 mg DAILY ISAIAH Administration Formoterol Fumarate 20 mcg 02/22/18 07:00 02/24/18 01:20 Perforomist INH 20 mcg RTBID ISAIAH Administration Famotidine 50 mls @ 100 mls/hr 02/22/18 09:00 02/23/18 09:46 Pepcid 20 Mg/50 Ml IV Infused DAILY ISAIAH Infusion Dextrose/Sodium Chloride 1,000 mls @ 83.333 mls/hr 02/23/18 05:00 02/23/18 18:42 D5ns IV 83.333 mls/hr .Q12H ISAIAH Administration Ondansetron HCl 4 mg 02/21/18 22:47 02/23/18 17:10 Zofran Inj IVP 4 mg Q6HR PRN Administration Nausea / Vomiting Polyethylene Glycol 17 gm 02/22/18 09:00 02/23/18 09:17 Miralax PO Not Given DAILY ISAIAH Sodium Chloride 10 ml 02/22/18 01:00 02/24/18 00:39 Normal Saline Flush 0.9% IVP Not Given 0100,0900,1700 ISAIAH Throat Lozenges 1 lozenge 02/22/18 14:00 02/22/18 14:28 Cepacol MM 1 lozenge Q2HR PRN Administration Throat pain - Physical Exam General Appearance: positive: No acute distress, Other (Very thin.) Eyes Bilateral: positive: No lid inflammation, Conjunctivae nml, No scleral icterus ENT: positive: No signs of dehydration Neck: positive: Trachea midline Respiratory: positive: Other (Decreased air motion throughout.) Abdomen: positive: Tenderness (Mild.), Other (Distended in lower abdomen with some high pitched bowel sounds.) Extremities: positive: Non-tender, Other (Very thin,) Neurologic/Psychiatric: positive: Disoriented to place, Disoriented to time Impression/Plan - Problem List Problem List: Extensive discussion with family regarding what the surgical and non-surgical options are. I spent over 120 minutes over 2 separate visits going over her medical condition as well as her 2 surgical issues. The 2 surgical issues are her splenic mass as well as her small bowel obstruction. I actually showed the CT scans with several orientations to her grandson and explained exactly what we are looking at. Over those 2 hours we talked about her simply horrific lung disease and her profound deconditioning. I explained that she is a very poor surgical candidate and there is not much we can do to improve upon this. If he would opt to operate we would have to make do. Encapsulating the entire visit I explained that the surgical options included doing absolutely nothing and this has the potential for protracted nausea and vomiting to the point where she is throwing up her own stool. The family did ask me whether not we could have an NG left and the patient and sent home with her. I explained that if the patient wishes to not eat or drink anything she is certainly within the right but it is illegal and immoral for anyone in the family to do this to her. The second opt ion would be to try and limit the operation performed namely get in for small bowel obstruction and get out. She would of course require general anesthesia or at least a spinal and in either case this comes with significant risk. Even riskier is to fix a small bowel obstruction as well as take out the spleen. The patient would have already had the risk of the general anesthesia we are now talked about the risk of a larger incision. This would have the benefit of making the pathologic diagnosis and if this was a malignancy and it is not curable at least it would provide some palliation. I explained that the patient could be made DNR throughout her surgery. I reminded them that we do not have a pathologic diagnosis and expectation of a quick and relatively painless certainly cannot be assured. The hour was getting late and I explained that I did not need a answer this minute. I explained that they could think about it and let the primary doctors know what they thought was in the patient's best interest. They stated that they would let me know were the hospitalist service know. I asked them to contact me with any further surgical questions and or concerns. Again over 120 minutes [id number] time was spent with his family during 2 visits
[2018-02-24] MEDS: IPRATROPIUM/ALBUTEROL 3 ML NEB INH PRN (05:52)
[2018-02-24 06:02] LABS: BASOPHILS % (AUTO) 0.4 %; EOSINOPHILS # (AUTO) 0.1 10^3/uL (0.0-0.7); EOSINOPHILS % (AUTO) 2.5 %; HGB - HEMOGLOBIN 9.9 g/dL (12.0-16.0); LYMPHOCYTES # (AUTO) 0.4 10^3/uL (1.5-3.5); LYMPHOCYTES % (AUTO) 8.3 %; MEAN CORPUSCULAR HEMOGLOBIN 31.1 pg (27.0-31.0); MEAN CORPUSCULAR HGB CONC 31.9 g/dL (32.0-36.0); MEAN CORPUSCULAR VOLUME 97.5 fL (81.0-99.0); MEAN PLATELET VOLUME 7.5 fL (7.9-10.8); MONOCYTES # (AUTO) 0.6 10^3/uL (0.0-1.0); MONOCYTES % (AUTO) 12.6 %; NEUTROPHILS # (AUTO) 3.5 10^3/uL (1.5-6.6); NEUTROPHILS % (AUTO) 76.2 %; PLT - PLATELET COUNT 365 10^3/uL (130-450); RED BLOOD COUNT 3.19 10^6/uL (4.20-5.40); RED CELL DISTRIBUTION WIDTH 15.4 % (12.0-15.0); WHITE BLOOD COUNT 4.6 x10^3/uL (4.8-10.8)
[2018-02-24 06:21] LABS: ALBUMIN 2.9 g/dL (3.2-5.5); ALBUMIN/GLOBULIN RATIO 1.2 (1.0-2.2); BILIRUBIN,TOTAL 0.4 mg/dL (0.2-1.0); CALCIUM 8.8 mg/dL (8.5-10.3); CREATININE 0.4 mg/dL (0.4-1.0); PHOSPHORUS 1.9 mg/dL (2.5-4.6); TOTAL PROTEIN 5.4 g/dL (6.7-8.2)
[2018-02-24] MEDS: DEXTROSE 5%-0.9% NACL 1,000 ML IV SCH ×2 (06:56→19:49)
[2018-02-24] MEDS: POLYETHYLENE GLYCOL 3350 17 GM PACKET PO SCH (07:18)
[2018-02-24] MEDS: ENOXAPARIN 40 MG/0.4 ML SYRINGE SUBQ SCH (08:01)
[2018-02-24] MEDS: FAMOTIDINE 20 MG/50 ML 50 ML IV SCH (08:02)
--- NOTE | 2018-02-24 22:13 | PROVIDER PROGRESS NOTE ---
Subjective - Prog Note Date Prog Note Date: 02/24/18 Prog Note Time: 12:00 - Subjective Pt reports feeling: No change Subjective: Vangie complains of a sore throat and lying in bed too much. She is difficult to keep alert upon exam. She denies any new symptoms when asked and denies feeling hungry. She notes that her original abdominal pain is nearly resolved. She appears comfortable. Family is not present for this exam. Current Medications - Current Medications Current Medications: Active Medications Acetaminophen (Tylenol) 650 mg PO Q4HR PRN PRN Reason: Pain 1 to 4 Albuterol/Ipratropium (Duoneb) 3 ml INH Q4HR PRN PRN Reason: Wheezing Last Admin: 02/24/18 05:52 Dose: 3 ml Budesonide (Pulmicort) 0.5 mg INH RTBID REPLACED BY [facility] Last Admin: 02/24/18 20:25 Dose: 0.5 mg Enoxaparin Sodium (Lovenox) 40 mg SUBQ DAILY REPLACED BY [facility] Last Admin: 02/24/18 08:01 Dose: 40 mg Formoterol Fumarate (Perforomist) 20 mcg INH RTBID REPLACED BY [facility] Last Admin: 02/24/18 20:25 Dose: 20 mcg Famotidine (Pepcid 20 Mg/50 Ml) 50 mls @ 100 mls/hr IV DAILY REPLACED BY [facility] Last Infusion: 02/24/18 09:03 Dose: Infused Dextrose/Sodium Chloride (D5ns) 1,000 mls @ 83.333 mls/hr IV .Q12H REPLACED BY [facility] Last Admin: 02/24/18 19:49 Dose: 83.333 mls/hr Morphine Sulfate (Morphine (Carpuject)) 2 mg IVP Q2HR PRN PRN Reason: Pain 8 to 10 Ondansetron HCl (Zofran Inj) 4 mg IVP Q6HR PRN PRN Reason: Nausea / Vomiting Last Admin: 02/23/18 17:10 Dose: 4 mg Oxycodone HCl (Roxicodone) 5 mg PO Q4HR PRN PRN Reason: Pain 5 to 7 Oxycodone HCl (Roxicodone) 10 mg PO Q4HR PRN PRN Reason: Pain 8 to 10 Polyethylene Glycol (Miralax) 17 gm PO DAILY REPLACED BY [facility] Last Admin: 02/24/18 07:18 Dose: Not Given Prochlorperazine Edisylate (Compazine Inj) 10 mg IVP Q6HR PRN PRN Reason: Nausea / Vomiting Promethazine HCl (Phenergan Inj) 25 mg IM Q6HR PRN PRN Reason: Nausea / Vomiting Sodium Chloride (Normal Saline Flush 0.9%) 10 ml IVP PRN PRN PRN Reason: NEEDED PER PROVIDER ORDERS Last Admin: 02/24/18 06:58 Dose: 10 ml Sodium Chloride (Normal Saline Flush 0.9%) 10 ml IVP 0100,0900,1700 ISAIAH Last Admin: 02/24/18 19:30 Dose: Not Given Throat Lozenges (Cepacol) 1 lozenge MM Q2HR PRN PRN Reason: Throat pain Last Admin: 02/22/18 14:28 Dose: 1 lozenge Zolpidem Tartrate (Ambien) 5 mg PO QPM PRN PRN Reason: Insomnia Aspirin [Aspir 81] 81 mg ORAL DAILY 04/05/14 Metoprolol Tartrate 75 mg ORAL DAILY 04/05/14 Furosemide [Lasix] 40 mg PO DAILY 02/16/17 Sertraline [Zoloft] 50 mg PO DAILY 12/21/17 Ipratropium/Albuterol [Duoneb] 3 ml INH QID 02/22/18 Metoprolol Tartrate 50 mg PO QPM 02/22/18 Potassium Chloride 20 meq PO DAILY 02/22/18 Beclomethasone Dipropionate [Qvar Redihaler] 100 mcg INH BID 02/24/18 Ipratropium/Albuterol [Combivent Respimat] 1 puffs INH QID 02/24/18 Objective - Vital Signs/Intake & Output Reviewed Vital Signs: Yes Vital Signs: Vital Signs x48h Temp Pulse Pulse Resp BP Pulse Ox 02/24/18 20:25 85 20 02/24/18 15:50 36.7 C 90 20 142/64 H 100 Intake & Output: Intake & Output 02/21/18 02/22/18 02/23/18 02/24/18 23:59 23:59 23:59 23:59 Intake Total 2267.5 2050 9.385 Output Total 1650 400 50 Balance 617.5 1650 2019.385 - Objective General Appearance: positive: Moderate distress, Lethargic Eyes Bilateral: positive: Normal inspection Eyes: OU Conjunctivae pale ENT: positive: Pharyngeal erythema, Dry mucous membranes Neck: positive: No JVD, Stiff neck Respiratory: positive: Chest non-tender, Wheezes, Rhonchi Cardiovascular: positive: No gallop, Irregularly irregular, Systolic murmur Peripheral Pulses: 2+ Radial (R), 2+ Radial (L) Abdomen: positive: Tenderness, Guarding, Abnml bowel sounds Back: positive: Nml inspection Skin: positive: No rash, Warm, Dry Extremities: positive: Non-tender, Full ROM, Nml appearance, No pedal edema Neurologic/Psychiatric: positive: Disoriented to place, Disoriented to time, Weakness, Sensory loss, Depressed mood/affect Reflexes: Bicep (R): 2+, Bicep (L): 2+ - Lab Results Fish Bones: 02/24/18 05:08 02/24/18 05:08 Other Labs: Lab Results x24hrs 02/24/18 02/24/18 Range/Units 05:08 05:08 WBC 4.6 L (4.8-10.8) x10^3/uL RBC 3.19 L (4.20-5.40) 10^6/uL Hgb 9.9 L (12.0-16.0) g/dL Hct 31.1 L (37.0-47.0) % MCV 97.5 (81.0-99.0) fL MCH 31.1 H (27.0-31.0) pg MCHC 31.9 L (32.0-36.0) g/dL RDW 15.4 H (12.0-15.0) % Plt Count 365 (130-450) 10^3/uL MPV 7.5 L (7.9-10.8) fL Neut # (Auto) 3.5 (1.5-6.6) 10^3/uL Lymph # (Auto) 0.4 L (1.5-3.5) 10^3/uL Baldwin # (Auto) 0.6 (0.0-1.0) 10^3/uL Eos # (Auto) 0.1 (0.0-0.7) 10^3/uL Baso # (Auto) 0.0 (0.0-0.1) 10^3/uL Absolute Nucleated RBC 0.00 x10^3/uL Nucleated RBC % 0.1 /100WBC Sodium 143 (135-145) mmol/L Potassium 3.3 L (3.5-5.0) mmol/L Chloride 106 (101-111) mmol/L Carbon Dioxide 31 (21-32) mmol/L Anion Gap 6.0 (6-13) BUN 7 (6-20) mg/dL Creatinine 0.4 (0.4-1.0) mg/dL Estimated GFR (MDRD) 151 (>89) Glucose 105 H (70-100) mg/dL Calcium 8.8 (8.5-10.3) mg/dL Phosphorus 1.9 L (2.5-4.6) mg/dL Magnesium 2.0 (1.7-2.8) mg/dL Total Bilirubin 0.4 (0.2-1.0) mg/dL AST 18 (10-42) IU/L ALT 26 (10-60) IU/L Alkaline Phosphatase 55 (42-121) IU/L Total Protein 5.4 L (6.7-8.2) g/dL Albumin 2.9 L (3.2-5.5) g/dL Globulin 2.5 (2.1-4.2) g/dL Albumin/Globulin Ratio 1.2 (1.0-2.2) ABX Reporting Has patient been on IV antibiotics over the past 48 hours?: No Assessment/Plan - Problem List (1) Small bowel obstruction Impression: Patient presented with abdominal pain, nausea and vomiting. She continues to have a rounded,tender abdomen. The CT of the patient's abdomen revealed a distal small bowel obstruction with transition point in the right pelvis. Palliative care is now in place as the family and patient remain undecided on next steps of care. The patient is not decisional and would likely not survive surgery, but her children feel uncomfortable proceeding with end of life plans. I met with the family late this evening, as the patient is very clear about how uncomfortable the NG continues to be, in fact, this has always been her primary complaint to me. It was decided that the patient will remain NPO, NG will stay in place and we will wait to see if the SBO resolves without surgery. Plan: NPO, continue gentle IVFs, NG tube with intermittent suction, IV antiemetics, IV pain medication for pain control and hold PO meds. (2) Oxygen dependent Impression: The patient wears 3L via nasal cannula chronically at home, which continues here. 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 Plan: Continue to monitor respiratory status. (3) Hypertension Impression: The patient is prescribed lasix, potassium and metoprolol at home. These are on hold as she was initially hypotensive and getting IVFs. Plan: Continue to monitor and consider IV forms of metoprolol if she becomes tachycardic. Qualifiers: Hypertension type: essential hypertension Qualified Code(s): I10 - Essential (primary) hypertension (4) COPD (chronic obstructive pulmonary disease) with emphysema Impression: The patient sees a neck pinner and is prescribed a duo-neb, combivent and Qvar at home. She is also on chronic oxygen at 3L at home. Her advanced COPD will hinder any surgical efforts as she will likely never progress to be extubated. She appears not to be in respiratory distress. Plan: Continue to monitor. Qualifiers: Emphysema type: unspecified Qualified Code(s): J43.9 - Emphysema, unspecified (5) Sore throat Impression: The patient's primary complaint is a sore throat for which she can have throat spray or lozenges. This is likely a consequence of the NG tube that remains in place. Plan: Continue oral care and offer PRN meds. (6) Confusion state Impression: The patient has been more forgetful that has become worse over the past few months. She can recognize her family, but does not seem to remember my visits from day to day. She has not attempted to get out to bed and has been comfortable. This is likely a consequence of her failing health and fragility. Plan: Continue to monitor. (7) Splenic mass Impression: The patient is noted to have splenic mass that has increased in size since her last imaging and is now 14.3 x 12.2 x 9.6 cm, previously 9.2 x 9.2 x 7.2 cm. There is also evidence of hemorrhage to the lateral margin. The patient complained of abdominal pain leading to this admission, and this could be a contributing factor. She appears hemodynamically stable, so continued bleeding is no longer a concern. Her H/H today are improved from yesterday at 9.9/31. Plan: Monitor for signs of deterioration.
--- NOTE | 2018-02-25 00:11 | PROVIDER PROGRESS NOTE ---
Subjective - General Admit Date: 02/21/18 - Review of Systems General: positive: Other (Dementia with waxing and waning mentation.) All Other Systems: positive: Reviewed and negative Objective - Patient Data Reviewed Vital Signs: Yes Vital Signs: Vital Signs x48h Pulse Resp 02/24/18 20:25 85 20 Intake & Output: Intake and Output Totals x24h 02/23/18 02/24/18 02/25/18 23:59 23:59 23:59 Intake Total 2049 2068.385 Output Total 400 50 Balance 1650 2018.385 - Lab Results Lab Results: 02/24/18 05:08 02/24/18 05:08 Other Lab Results: Lab Results x24hrs 02/24/18 02/24/18 Range/Units 05:08 05:08 WBC 4.6 L (4.8-10.8) x10^3/uL RBC 3.19 L (4.20-5.40) 10^6/uL Hgb 9.9 L (12.0-16.0) g/dL Hct 31.1 L (37.0-47.0) % MCV 97.5 (81.0-99.0) fL MCH 31.1 H (27.0-31.0) pg MCHC 31.9 L (32.0-36.0) g/dL RDW 15.4 H (12.0-15.0) % Plt Count 365 (130-450) 10^3/uL MPV 7.5 L (7.9-10.8) fL Neut # (Auto) 3.5 (1.5-6.6) 10^3/uL Lymph # (Auto) 0.4 L (1.5-3.5) 10^3/uL Hardin # (Auto) 0.6 (0.0-1.0) 10^3/uL Eos # (Auto) 0.1 (0.0-0.7) 10^3/uL Baso # (Auto) 0.0 (0.0-0.1) 10^3/uL Absolute Nucleated RBC 0.00 x10^3/uL Nucleated RBC % 0.1 /100WBC Sodium 143 (135-145) mmol/L Potassium 3.3 L (3.5-5.0) mmol/L Chloride 106 (101-111) mmol/L Carbon Dioxide 31 (21-32) mmol/L Anion Gap 6.0 (6-13) BUN 7 (6-20) mg/dL Creatinine 0.4 (0.4-1.0) mg/dL Estimated GFR (MDRD) 151 (>89) Glucose 105 H (70-100) mg/dL Calcium 8.8 (8.5-10.3) mg/dL Phosphorus 1.9 L (2.5-4.6) mg/dL Magnesium 2.0 (1.7-2.8) mg/dL Total Bilirubin 0.4 (0.2-1.0) mg/dL AST 18 (10-42) IU/L ALT 26 (10-60) IU/L Alkaline Phosphatase 55 (42-121) IU/L Total Protein 5.4 L (6.7-8.2) g/dL Albumin 2.9 L (3.2-5.5) g/dL Globulin 2.5 (2.1-4.2) g/dL Albumin/Globulin Ratio 1.2 (1.0-2.2) - Current Medications Current Medications: Current Medications Generic Name Dose Route Start Last Admin Trade Name Freq PRN Reason Stop Dose Admin Albuterol/Ipratropium 3 ml 02/21/18 23:03 02/24/18 05:52 Duoneb INH 3 ml Q4HR PRN Administration Wheezing Budesonide 0.5 mg 02/22/18 07:00 02/24/18 20:25 Pulmicort INH 0.5 mg RTBID ISAIAH Administration Enoxaparin Sodium 40 mg 02/22/18 09:00 02/24/18 08:01 Lovenox SUBQ 40 mg DAILY ISAIAH Administration Formoterol Fumarate 20 mcg 02/22/18 07:00 02/24/18 20:25 Perforomist INH 20 mcg RTBID ISAIAH Administration Famotidine 50 mls @ 100 mls/hr 02/22/18 09:00 02/24/18 09:03 Pepcid 20 Mg/50 Ml IV Infused DAILY ISAIAH Infusion Dextrose/Sodium Chloride 1,000 mls @ 83.333 mls/hr 02/23/18 05:00 02/24/18 19:49 D5ns IV 83.333 mls/hr .Q12H ISAIAH Administration Ondansetron HCl 4 mg 02/21/18 22:47 02/23/18 17:10 Zofran Inj IVP 4 mg Q6HR PRN Administration Nausea / Vomiting Polyethylene Glycol 17 gm 02/22/18 09:00 02/24/18 07:18 Miralax PO Not Given DAILY ISAIAH Sodium Chloride 10 ml 02/21/18 22:47 02/24/18 06:58 Normal Saline Flush 0.9% IVP 10 ml PRN PRN Administration NEEDED PER PROVIDER ORDERS Sodium Chloride 10 ml 02/22/18 01:00 02/24/18 19:30 Normal Saline Flush 0.9% IVP Not Given 0100,0900,1700 ISAIAH Throat Lozenges 1 lozenge 02/22/18 14:00 02/22/18 14:28 Cepacol MM 1 lozenge Q2HR PRN Administration Throat pain - Physical Exam General Appearance: positive: No acute distress (Note I did not perform a physical examination during this visit - see discussion.) Impression/Plan - Problem List Problem List: I spent over 120 minutes with the family yesterday during 2 separate visits answering questions regarding her diagnosis and her prognosis. I very clearly explained that there is NO diagnosis of malignancy as no biopsy has been done, Although the splenic mass is certainly suspicious for malignancy this suspicion is a far cry from a definitive diagnosis. I explained that anything could be done for her going from nothing, to simply taking care of the bowel obstruction, to tackling the splenic mass. I again explained that she is NOT A GOOD SURGICAL CANDIDATE but sometimes we should operate and nothing can be done to improve a patient's basic condition. I explained that she could also be DNR during her surgery. See the previous note for more details. When I spoke with Lan Camarilloese today, Lan made it clear that the family did not want anything done. I explained to Lan that whereas I thought this was reasonable I wondered whether consideration was given as to how and when the patient would - I think it will be longer and "messier" than what is thought. At any rate I will sign off her care as surgery is not desired. I wish to thank the Hospitalist Team for this consultation. Let me know how I can help moving forward.
[2018-02-25] MEDS: SODIUM CHLORIDE FLUSH 0.9% 10 ML SYRINGE IVP SCH ×3 (04:19→17:51)
[2018-02-25 06:45] LABS: BASOPHILS % (AUTO) 0.4 %; EOSINOPHILS # (AUTO) 0.1 10^3/uL (0.0-0.7); EOSINOPHILS % (AUTO) 3.1 %; HGB - HEMOGLOBIN 9.8 g/dL (12.0-16.0); LYMPHOCYTES # (AUTO) 0.4 10^3/uL (1.5-3.5); LYMPHOCYTES % (AUTO) 10.7 %; MEAN CORPUSCULAR HEMOGLOBIN 31.5 pg (27.0-31.0); MEAN CORPUSCULAR HGB CONC 32.2 g/dL (32.0-36.0); MEAN CORPUSCULAR VOLUME 97.8 fL (81.0-99.0); MONOCYTES # (AUTO) 0.5 10^3/uL (0.0-1.0); MONOCYTES % (AUTO) 13.2 %; NEUTROPHILS # (AUTO) 2.5 10^3/uL (1.5-6.6); NEUTROPHILS % (AUTO) 72.6 %; PLT - PLATELET COUNT 337 10^3/uL (130-450); RED CELL DISTRIBUTION WIDTH 15.7 % (12.0-15.0); WHITE BLOOD COUNT 3.5 x10^3/uL (4.8-10.8)
[2018-02-25 07:02] LABS: ALBUMIN 2.6 g/dL (3.2-5.5); BILIRUBIN,TOTAL 0.5 mg/dL (0.2-1.0); CALCIUM 8.5 mg/dL (8.5-10.3); CREATININE 0.4 mg/dL (0.4-1.0); MAGNESIUM 1.9 mg/dL (1.7-2.8); TOTAL PROTEIN 5.1 g/dL (6.7-8.2)
[2018-02-25] MEDS: FORMOTEROL FUMARATE NEB 20 MCG/2 ML INH SCH ×2 (08:00→19:10)
[2018-02-25] MEDS: IPRATROPIUM/ALBUTEROL 3 ML NEB INH PRN (08:00)
[2018-02-25] MEDS: BUDESONIDE 0.5 MG/2 ML NEB INH SCH ×2 (08:00→19:10)
[2018-02-25] MEDS: DEXTROSE 5%-0.9% NACL 1,000 ML IV SCH (08:37)
[2018-02-25] MEDS: POLYETHYLENE GLYCOL 3350 17 GM PACKET PO SCH (08:37)
[2018-02-25] MEDS: FAMOTIDINE 20 MG/50 ML 50 ML IV SCH (08:37)
[2018-02-25] MEDS ORDERED: MIN OIL/DIMETHICON/COCONUT OIL 92 GM TUBE TOP PRN (09:43)
[2018-02-25] MEDS ORDERED: METOPROLOL SUCCINATE 25 MG TABLET PO SCH (12:00)
[2018-02-25] MEDS: METHYLNALTREXONE 12 MG/0.6 ML VIAL SUBQ SCH (13:27)
[2018-02-25] MEDS: SPIRONOLACTONE 25 MG TABLET PO SCH (13:27)
[2018-02-25] MEDS: METOCLOPRAMIDE 10 MG TABLET PO SCH ×2 (13:27→17:51)
[2018-02-25] MEDS: SERTRALINE 50 MG TABLET PO SCH (13:27)
--- NOTE | 2018-02-25 17:25 | CONSULTATION NOTE ---
Palliative Care Follow Up - Referral Referring Provider: Lan DONALDSON Time of Visit: [id number]; [id number] Referral setting: Hospitalized patient Referral Reason: SBO/Spleen Mass/Goals of Care - Information Sources Records reviewed: RN notes reviewed, Previous records reviewed History/Review of Systems obtained from: Patient, Family (Family meeting am with Laura and granddaughters Tracie/Atul PM Laura/Yolis/Henry (CHYNA)) Exam limitations: Clinical condition (patient with flucutating memory; in good spirits) - History of Present Illness Update Brief HPI Update: This is an 87-year-old woman who has a recent diagnosis of a splenic tumor, who had had a consult with the outcome being a watch and wait. She had presented with vague left lower abdominal pain and had abdominal series in August without cause for concern. 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 She was acutely admitted on 02/21 for nausea vomiting and severe right upper quadrant pain, no vomiting was limited. On follow-up CT scan this admit, the mass is enlarged to 14.3 x 12.2 x 9.6 cm with concern for hemorrhage into the mass along one of the borders, but H/H has remained stable. She also presented with small bowel obstruction, unclear if this is precipitated related to the mass or previous surgeries and is adhesions. The small bowel obstruction has been the point of contention, family has met with Dr. Ortiz with with the goal to make a decision whether to move forward with surgery. Patient though has fluctuating cognitive status, would need family to support and make decision for her. Patient does not have a identified the DPOA, so it default to Laura and Marcela, son and daughter being in agreement. There has been difficulty coming to a decision given patient severe underlying emphasema and the risk of surgery possibly resulting in and EOL event or with significant morbidity. Patient has actually been declining over the last several months, most notable decline was with her fall. She had previously been actually quite independent, now she is mostly recliner bound, her son provides assistance with setting up nebulizer, meals, and overseeing her care. She does have a commode, but both daughter and son note functional decline. Patient also has underlying emphysema, she is oxygen dependent on 3-1/2 L at home, gets easily short of breath, this has become so limiting it is very difficult to get her out of the house, she pretty much "stays put". On examination in the morning, patient still had NG tube, awaiting for it to be pulled. She does have some tinkling bowel sounds, she is quite proud of the fact she is farting, as had a smear of stool per nursing staff, and denies any abdominal pain or discomfort on examination. Patient does complain of severe burning and pain at her tailbone, patient has been sitting straight upright, she is quite thin, and presents with bright red area of concern on her coccyx. Of n bola when trying to examine her tailbone, patient is so severely short of breath, as she cannot lay flat, she can only tolerate a little bit of movement, she reports this is actually her baseline. She does have significant respiratory effort, her daughter reports she gets severe anxiety with this, it has mostly been confined to the recliner, and ambulating with frequent rest periods to the restroom. She does have a commode which she has used as well. Second exam in the afternoon at 230, patient's tube is out, she has been sipping on broth and fluids without any problem. She denies any nausea, denies any increase in pain. She does look actually quite more perky and feeling much better. She is much encouraged as well as her family is as well. Hospitalist and ordering Relistor and Reglan to facilitate bowel movement. Social History - Living Situation Living arrangement: At home Living Situation: With family (Patient lives at home with her son Joaquin. He provides meals, support for nebulizers, but does not provide any personal care. She does have a close family that checks on her frequently, Laura is over often helping with meeting care and personal care needs as well. She does though work, and what of the topics is how to transition home with appropriate support) Medications/Allergies - Medications Active Medication List: Active Medications Acetaminophen (Tylenol) 650 mg PO Q4HR PRN PRN Reason: Pain 1 to 4 Albuterol/Ipratropium (Duoneb) 3 ml INH Q4HR PRN PRN Reason: Wheezing Last Admin: 02/25/18 08:00 Dose: 3 ml Budesonide (Pulmicort) 0.5 mg INH RTBID [facility] Last Admin: 02/25/18 08:00 Dose: 0.5 mg Formoterol Fumarate (Perforomist) 20 mcg INH RTBID [facility] Last Admin: 02/25/18 08:00 Dose: 20 mcg Famotidine (Pepcid 20 Mg/50 Ml) 50 mls @ 100 mls/hr IV DAILY [facility] Last Infusion: 02/25/18 09:56 Dose: Infused Methylnaltrexone [place] (Relistor) 8 mg SUBQ DAILY [facility] Last Admin: 02/25/18 13:27 Dose: 8 mg Metoclopramide HCl (Reglan) 10 mg PO Q6H [facility] Last Admin: 02/25/18 13:27 Dose: 10 mg Metoprolol Succinate (Toprol Xl) 25 mg PO DAILY [facility] Last Admin: 02/25/18 13:27 Dose: 25 mg Mineral Oil (Cavilon) 1 applic TOP PRN PRN PRN Reason: Skin Care Last Admin: 02/25/18 13:28 Dose: 1 applic Morphine Sulfate (Morphine (Carpuject)) 2 mg IVP Q2HR PRN PRN Reason: Pain 8 to 10 Ondansetron HCl (Zofran Inj) 4 mg IVP Q6HR PRN PRN Reason: Nausea / Vomiting Last Admin: 02/23/18 17:10 Dose: 4 mg Oxycodone HCl (Roxicodone) 5 mg PO Q4HR PRN PRN Reason: Pain 5 to 7 Oxycodone HCl (Roxicodone) 10 mg PO Q4HR PRN PRN Reason: Pain 8 to 10 Polyethylene Glycol (Miralax) 17 gm PO DAILY [facility] Last Admin: 02/25/18 08:37 Dose: Not Given Prochlorperazine Edisylate (Compazine Inj) 10 mg IVP Q6HR PRN PRN Reason: Nausea / Vomiting Promethazine HCl (Phenergan Inj) 25 mg IM Q6HR PRN PRN Reason: Nausea / Vomiting Sertraline HCl (Zoloft) 50 mg PO DAILY [facility] Last Admin: 02/25/18 13:27 Dose: 50 mg Sodium Chloride (Normal Saline Flush 0.9%) 10 ml IVP PRN PRN PRN Reason: NEEDED PER PROVIDER ORDERS Last Admin: 02/24/18 06:58 Dose: 10 ml Sodium Chloride (Normal Saline Flush 0.9%) 10 ml IVP 0100,0900,1700 [facility] Last Admin: 02/25/18 08:37 Dose: Not Given Spironolactone (Aldactone) 25 mg PO DAILY [facility] Last Admin: 02/25/18 13:27 Dose: 25 mg Throat Lozenges (Cepacol) 1 lozenge MM Q2HR PRN PRN Reason: Throat pain Last Admin: 02/22/18 14:28 Dose: 1 lozenge Zolpidem Tartrate (Ambien) 5 mg PO QPM PRN PRN Reason: Insomnia Aspirin [Aspir 81] 81 mg ORAL DAILY 04/05/14 Metoprolol Tartrate 75 mg ORAL DAILY 04/05/14 Furosemide [Lasix] 40 mg PO DAILY 02/16/17 Sertraline [Zoloft] 50 mg PO DAILY 12/21/17 Ipratropium/Albuterol [Duoneb] 3 ml INH QID 02/22/18 Metoprolol Tartrate 50 mg PO QPM 02/22/18 Potassium Chloride 20 meq PO DAILY 02/22/18 Beclomethasone Dipropionate [Qvar Redihaler] 100 mcg INH BID 02/24/18 Ipratropium/Albuterol [Combivent Respimat] 1 puffs INH QID 02/24/18 - Allergies Allergies/Adverse Reactions: Allergies Allergy/AdvReac Type Severity Reaction Status Date / Time levofloxacin [From Levaquin] AdvReac Unknown Verified 02/21/18 20:21 Review of Systems - Constitutional Constitutional: reports: Fatigue - Eyes Eyes: reports: Vision loss (patient has macular degeneration) - Ears, Nose & Throat Ears, Nose & Throat: reports: Hearing loss (patient does not wear hearing aids; does have significant hearing problems), Sore throat (improved with tube out), Dry mouth - Cardiovascular Cardiovascular: reports: Exertional dyspnea, Decr. exercise tolerance, Orthopnea - Respiratory Respiratory: reports: SOB at rest, SOB with exertion - Gastrointestinal Gastrointestinal: reports: Other (started on clear liquieds). denies: Nausea, Vomiting, Reflux/heartburn - Genitourinary Genitourinary: denies: Incontinence - Musculoskeletal Musculoskeletal: reports: Stiffness, Limited range of motion, Muscle weakness, Other (c/o LE weakness difficulty with transfers "doesn't trust her legs") - Integumentary Integumentary: reports: Dryness, Other (coccyx) - Neurological Neurological: reports: Memory problems (fluctuating status; much clearer in the afternoon; has quick wit but STM issues of recall of conversations/care issues) - Psychiatric Psychiatric: reports: Anxiety (daughter reports patient with severe anxiety at home; mostly attributed to breathlessness) - Hematologic/Lymphatic Hematologic/Lymphatic: reports: Anemia Physical Exam - Vital Signs Vital Signs: Vital Signs x48h Temp Pulse Pulse Resp BP Pulse Ox 02/25/18 16:03 66 22 02/25/18 15:59 36.7 C 84 20 137/60 H 100 - Physical Exam General Appearance: positive: Mild distress Eyes Bilateral: positive: Normal inspection ENT: positive: Dry mucous membranes Neck: positive: No JVD, Trachea midline Cardiovascular: positive: Regular rate & rhythm Respiratory: positive: Diminished throughout, Other (breathless with any activity; patients baseline) Abdomen: positive: Soft. negative: Guarding Skin: positive: Pallor, Pressure wound (coccyx; redness and discomfort) Extremities: positive: No pedal edema Neurologic/Psychiatric: positive: Mood/affect nml, Weakness Palliative Care - POLST Patient has POLST: No POLST Status: DNR (introduced POLST at second family meeting) Pain: No pain Tiredness/Fatigue: Severe (7-10) Drowsiness/Sedation: Mild (1-3) Nausea: None Performance Status: Patient currently has only been able to transfer to the commode, this is with moderate assist. Patient does admit to lower extremity weakness and shakiness. She does find the hospital bed quite uncomfortable, has trouble getting situated, she is looking forward to her recliner. When asked if she wanted a hospital bed at home as she was fairly adamant and in no - Palliative Care Discussion: [id number]. First discussion included Laura and 2 granddaughters Dary and Atul. We did discuss what most likely patient's goals of care would be, all are in agreement patient would like to go home. Continue to struggle with disagreement regarding whether to do surgery or not, counseling provided regarding the range of options, consequences, and risks involved. Had consulted with Dr. Kang's office prior to talking with W. Concern, which is valid, is patient's severe underlying emphysema that has been significantly worse over the last several months. Everyone had been in agreement regarding the spleen mass/tumor and supporting no surgery at this point, this small bowel obstruction has raised issues in coming to agreements. Yolis the son, did want to move forward with surgery, he is not present. Discussed goal today is to remove NG and see if patient clinically improved. Agreed though as both need to come to agreement as patient doesn't present with medical decision making capacity to weight the complexity of this decision, they can include her but she is getting the two surgical issues confused. 1445 Patient is doing better, she is tolerating currently the NG tube out, she is not having any pain in hoping for the best the surgery for SBO decision is currently not needed. Counseling provided though patient remains frail and fragile, still has a mass and also has end-stage emphysema. She definitely is at risk for re-obstruction, and all are in agreement her goals would be to be at home. Counseling provided regarding support may need. Joaquin is unable to do personal care, family would need to consider hiring some assistance if she needs further assistance there are people available from family to help but will need a longer term plan. We did discuss in the context of her advanced emphysema, fragile status, that she would meet actually hospice criteria under her pulmonary condition in an of itself. Do feel hospice support would be of benefit, they do recognize patient is quite determined, but would like to support her to be at home, and not return to the hospital if at all possible. Counseling provided regarding the hospice benefit both limitations and support available for family and patient. Introduced the ENRIQUETA , agreed given patient's confusion, will wait and see what the day brings, and introduce the plan tomorrow. We have made in meeting again at 930 tomorrow am. Results - Lab Results Lab results reviewed: Yes Fish Bones: 02/25/18 05:15 02/25/18 05:15 Lab and Imaging Results: Lab Results x24hrs 02/25/18 02/25/18 Range/Units 05:15 05:15 WBC 3.5 L (4.8-10.8) x10^3/uL RBC 3.10 L (4.20-5.40) 10^6/uL Hgb 9.8 L (12.0-16.0) g/dL Hct 30.3 L (37.0-47.0) % MCV 97.8 (81.0-99.0) fL MCH 31.5 H (27.0-31.0) pg MCHC 32.2 (32.0-36.0) g/dL RDW 15.7 H (12.0-15.0) % Plt Count 337 (130-450) 10^3/uL MPV 8.0 (7.9-10.8) fL Neut # (Auto) 2.5 (1.5-6.6) 10^3/uL Lymph # (Auto) 0.4 L (1.5-3.5) 10^3/uL [place] # (Auto) 0.5 (0.0-1.0) 10^3/uL Eos # (Auto) 0.1 (0.0-0.7) 10^3/uL Baso # (Auto) 0.0 (0.0-0.1) 10^3/uL Absolute Nucleated RBC 0.00 x10^3/uL Nucleated RBC % 0.0 /100WBC Sodium 146 H (135-145) mmol/L Potassium 3.1 L (3.5-5.0) mmol/L Chloride 110 (101-111) mmol/L Carbon Dioxide 32 (21-32) mmol/L Anion Gap 4.0 L (6-13) BUN 5 L (6-20) mg/dL Creatinine 0.4 (0.4-1.0) mg/dL Estimated GFR (MDRD) 151 (>89) Glucose 109 H (70-100) mg/dL Calcium 8.5 (8.5-10.3) mg/dL Phosphorus 2.0 L (2.5-4.6) mg/dL Magnesium 1.9 (1.7-2.8) mg/dL Total Bilirubin 0.5 (0.2-1.0) mg/dL AST 17 (10-42) IU/L ALT 23 (10-60) IU/L Alkaline Phosphatase 51 (42-121) IU/L Total Protein 5.1 L (6.7-8.2) g/dL Albumin 2.6 L (3.2-5.5) g/dL Globulin 2.5 (2.1-4.2) g/dL Albumin/Globulin Ratio 1.0 (1.0-2.2) Impression and Recommendations - Palliative Care Impression: This is an 87-year-old delightful woman, who presented acutely with a small bowel obstruction, she does have a known splenic mass/tumor that is enlarging. She does have advanced end-stage emphysema, his quite frail and has had both functional and some cognitive decline over the last several months. Patient goal is to return home, family does feel she will do better there. Currently she is able to eat and drink without any acute symptoms, if continues hope to transition home with hospice support Recommendations/Counseling Done: 1. Advanced care planning. This is very complex in the context of needing support on family decision making. 2 family meetings were performed today, with clarification of goals of care. If patient continues to improve, goal at this point in time will be to discharge with hospice support recognizing would not return back to the hospital. If patient still with obstruction, will need to revisit as there was disagreement regarding surgical intervention or not for the acute SBO. Time Spent: 135 minutes spent in counseling regarding family conferencing, coordination of care with hospitalist, surgeon, and hospice.
--- NOTE | 2018-02-25 17:35 | PROVIDER PROGRESS NOTE ---
Subjective - Prog Note Date Prog Note Date: 02/25/18 Prog Note Time: 14:00 - Subjective Pt reports feeling: Improved Subjective: Vangie has no complaints and states that she continues to have a "stomach ache". She denies chest pain, vomiting, diarrhea, rashes, dizziness or a new cough. Her IV has lost access, so this will now be left out as per her request. Current Medications - Current Medications Current Medications: Active Medications Acetaminophen (Tylenol) 650 mg PO Q4HR PRN PRN Reason: Pain 1 to 4 Albuterol/Ipratropium (Duoneb) 3 ml INH Q4HR PRN PRN Reason: Wheezing Last Admin: 02/25/18 08:00 Dose: 3 ml Budesonide (Pulmicort) 0.5 mg INH RTBID [facility] Last Admin: 02/25/18 08:00 Dose: 0.5 mg Formoterol Fumarate (Perforomist) 20 mcg INH RTBID [facility] Last Admin: 02/25/18 08:00 Dose: 20 mcg Methylnaltrexone [place] (Relistor) 8 mg SUBQ DAILY [facility] Last Admin: 02/25/18 13:27 Dose: 8 mg Metoclopramide HCl (Reglan) 10 mg PO Q6H [facility] Last Admin: 02/25/18 17:51 Dose: 10 mg Metoprolol Succinate (Toprol Xl) 50 mg PO BIDWM [facility] Mineral Oil (Cavilon) 1 applic TOP PRN PRN PRN Reason: Skin Care Last Admin: 02/25/18 13:28 Dose: 1 applic Ondansetron HCl (Zofran Odt) 4 mg TL Q4HR PRN PRN Reason: Nausea / Vomiting Oxycodone HCl (Roxicodone) 5 mg PO Q4HR PRN PRN Reason: Pain 5 to 7 Oxycodone HCl (Roxicodone) 10 mg PO Q4HR PRN PRN Reason: Pain 8 to 10 Pantoprazole Sodium (Protonix) 40 mg PO QDAC [facility] Polyethylene Glycol (Miralax) 17 gm PO DAILY [facility] Last Admin: 02/25/18 08:37 Dose: Not Given Promethazine HCl (Phenergan Inj) 25 mg IM Q6HR PRN PRN Reason: Nausea / Vomiting Sertraline HCl (Zoloft) 50 mg PO DAILY [facility] Last Admin: 02/25/18 13:27 Dose: 50 mg Spironolactone (Aldactone) 25 mg PO DAILY [facility] Last Admin: 02/25/18 13:27 Dose: 25 mg Throat Lozenges (Cepacol) 1 lozenge MM Q2HR PRN PRN Reason: Throat pain Last Admin: 02/22/18 14:28 Dose: 1 lozenge Zolpidem Tartrate (Ambien) 5 mg PO QPM PRN PRN Reason: Insomnia Aspirin [Aspir 81] 81 mg ORAL DAILY 04/05/14 Sertraline [Zoloft] 50 mg PO DAILY 12/21/17 Ipratropium/Albuterol [Duoneb] 3 ml INH QID 02/22/18 Beclomethasone Dipropionate [Qvar Redihaler] 100 mcg INH BID 02/24/18 Ipratropium/Albuterol [Combivent Respimat] 1 puffs INH QID 02/24/18 Objective - Vital Signs/Intake & Output Reviewed Vital Signs: Yes Vital Signs: Vital Signs x48h Temp Pulse Pulse Resp BP Pulse Ox 02/25/18 16:03 66 22 02/25/18 15:59 36.7 C 84 20 137/60 H 100 Intake & Output: Intake & Output 02/22/18 02/23/18 02/24/18 02/25/18 23:59 23:59 23:59 23:59 Intake Total 2267.5 2050 2069.385 1861.388 Output Total 1650 400 50 301 Balance 617.5 1650 2019.385 1560.388 - Objective General Appearance: positive: No acute distress, Alert Eyes Bilateral: positive: PERRL, No lid inflammation Eyes: OU Conjunctivae pale ENT: positive: Pharynx nml, No signs of dehydration, Pharyngeal erythema Neck: positive: Thyroid nml, No JVD, Trachea midline Respiratory: positive: Chest non-tender, No respiratory distress, Wheezes, Other (scattered crackes, bilaterally) Cardiovascular: positive: No gallop, Irregularly irregular, Systolic murmur Peripheral Pulses: 1+ Radial (R), 1+ Radial (L) Abdomen: positive: Tenderness, Guarding, Abnml bowel sounds, Other (rounded, firm) Skin: positive: No rash, Warm, Dry, Cyanosis (mild, noted in finger tips), Pallor Extremities: positive: Non-tender, Full ROM, No pedal edema Neurologic/Psychiatric: positive: CN's nml (2-12), Motor nml, Sensation nml, Disoriented to time, Weakness, Sensory loss, Depressed mood/affect Reflexes: Bicep (R): 2+, Bicep (L): 2+ - Lab Results Fish Bones: 02/25/18 05:15 02/25/18 05:15 Other Labs: Lab Results x24hrs 02/25/18 02/25/18 Range/Units 05:15 05:15 WBC 3.5 L (4.8-10.8) x10^3/uL RBC 3.10 L (4.20-5.40) 10^6/uL Hgb 9.8 L (12.0-16.0) g/dL Hct 30.3 L (37.0-47.0) % MCV 97.8 (81.0-99.0) fL MCH 31.5 H (27.0-31.0) pg MCHC 32.2 (32.0-36.0) g/dL RDW 15.7 H (12.0-15.0) % Plt Count 337 (130-450) 10^3/uL MPV 8.0 (7.9-10.8) fL Neut # (Auto) 2.5 (1.5-6.6) 10^3/uL Lymph # (Auto) 0.4 L (1.5-3.5) 10^3/uL [place] # (Auto) 0.5 (0.0-1.0) 10^3/uL Eos # (Auto) 0.1 (0.0-0.7) 10^3/uL Baso # (Auto) 0.0 (0.0-0.1) 10^3/uL Absolute Nucleated RBC 0.00 x10^3/uL Nucleated RBC % 0.0 /100WBC Sodium 146 H (135-145) mmol/L Potassium 3.1 L (3.5-5.0) mmol/L Chloride 110 (101-111) mmol/L Carbon Dioxide 32 (21-32) mmol/L Anion Gap 4.0 L (6-13) BUN 5 L (6-20) mg/dL Creatinine 0.4 (0.4-1.0) mg/dL Estimated GFR (MDRD) 151 (>89) Glucose 109 H (70-100) mg/dL Calcium 8.5 (8.5-10.3) mg/dL Phosphorus 2.0 L (2.5-4.6) mg/dL Magnesium 1.9 (1.7-2.8) mg/dL Total Bilirubin 0.5 (0.2-1.0) mg/dL AST 17 (10-42) IU/L ALT 23 (10-60) IU/L Alkaline Phosphatase 51 (42-121) IU/L Total Protein 5.1 L (6.7-8.2) g/dL Albumin 2.6 L (3.2-5.5) g/dL Globulin 2.5 (2.1-4.2) g/dL Albumin/Globulin Ratio 1.0 (1.0-2.2) ABX Reporting Has patient been on IV antibiotics over the past 48 hours?: No Assessment/Plan - Problem List (1) Small bowel obstruction Impression: Patient presented with abdominal pain, nausea and vomiting. She continues to have a rounded,tender, firm abdomen. The CT of the patient's abdomen revealed a distal small bowel obstruction with transition point in the right pelvis. Palliative care is now in place and the family has decided against surgery with plans to return home with Hospice care. Today, since there had been only ~100 ml out since midnight, a order was written to remove NG and start the patient on a clear liquid diet. Upon exam she continues to have a rounded,tender, firm abd omen. Bowel sounds are present and she admits to flatus. Plan: Continue with CL diet. (2) Splenic mass Impression: The patient is noted to have splenic mass that has increased in size since her last imaging and is now 14.3 x 12.2 x 9.6 cm, previously 9.2 x 9.2 x 7.2 cm. There is also evidence of hemorrhage to the lateral margin. The patient complained of abdominal pain leading to this admission, and this could be a contributing factor. She appears hemodynamically stable, so continued bleeding is no longer a concern. Plan: Monitor for signs of deterioration. (3) Oxygen dependent Impression: The patient wears 3L via nasal cannula chronically at home, which continues here. 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 She is not in respiratory distress at all upon exam and I suspect that the newly started spironolactone will help out with her breathing. Plan: Continue to monitor respiratory status. (4) Hypertension Impression: The patient is prescribed lasix, potassium and metoprolol at home. She was on a short acting metoprolol, that has been resumed to a long acting form and sent to her pharmacy in preparation for discharge. I have also discontinued her lasix and potassium and given her spironolactone based on her latest echo report. Plan: Continue to monitor and check vital signs daily. Qualifiers: Hypertension type: essential hypertension Qualified Code(s): I10 - Essential (primary) hypertension (5) COPD (chronic obstructive pulmonary disease) with emphysema Impression: The patient sees a tablet making machine operator helper and is prescribed a duo-neb, combivent and Qvar at home, and similar variations of nebulizers have been continued here. She is also on chronic oxygen at 3L at home. She does not appear to be in respiratory distress. Plan: Continue to monitor. Qualifiers: Emphysema type: unspecified Qualified Code(s): J43.9 - Emphysema, unspecified (6) Sore throat Impression: The patient has no more complaints of a sore throat since her NG has been removed. Plan: Continue oral care and offer PRN meds. (7) Confusion state Impression: The patient has been more forgetful that has become worse over the past few months. She can recognize her family, but does not seem to remember my visits from day to day. She has not attempted to get out to bed and has been comfortable. This is likely a consequence of her failing health and fragility. Today upon exam, she did remember our visit yesterday and commented on my glittery earrings. She appears to be comprehending more appropriately with improved STM. Plan: Continue to monitor. (8) Moderate to severe pulmonary hypertension Impression: An echo was completed during this stay and shows elevated right sided heart pressures with an RVSP at rest of 57 mm Hg, showing moderate to severe pulmonary hypertension. She has been started on daily Spironolactone, which was sent to her pharmacy. She is also oxygen dependent. This condition is likely a condition of her life-long smoking habit. Plan: Continue supplemental oxygen and daily spironolactone.
[2018-02-25] MEDS ORDERED: ONDANSETRON ODT 4 MG TABLET TL PRN (18:05)
[2018-02-26] MEDS: METOCLOPRAMIDE 10 MG TABLET PO SCH ×4 (00:45→17:35)
[2018-02-26 06:32] LABS: BASOPHILS % (AUTO) 0.5 %; EOSINOPHILS # (AUTO) 0.2 10^3/uL (0.0-0.7); LYMPHOCYTES # (AUTO) 0.4 10^3/uL (1.5-3.5); LYMPHOCYTES % (AUTO) 8.5 %; MEAN CORPUSCULAR HEMOGLOBIN 31.2 pg (27.0-31.0); MEAN CORPUSCULAR HGB CONC 32.2 g/dL (32.0-36.0); MEAN CORPUSCULAR VOLUME 96.8 fL (81.0-99.0); MEAN PLATELET VOLUME 7.5 fL (7.9-10.8); MONOCYTES # (AUTO) 0.6 10^3/uL (0.0-1.0); PLT - PLATELET COUNT 355 10^3/uL (130-450); RED BLOOD COUNT 3.22 10^6/uL (4.20-5.40); RED CELL DISTRIBUTION WIDTH 15.5 % (12.0-15.0); WHITE BLOOD COUNT 5.3 x10^3/uL (4.8-10.8)
[2018-02-26 06:41] LABS: ALBUMIN 2.6 g/dL (3.2-5.5); ALBUMIN/GLOBULIN RATIO 1.1 (1.0-2.2); BILIRUBIN,TOTAL 0.6 mg/dL (0.2-1.0); CALCIUM 8.6 mg/dL (8.5-10.3); CREATININE 0.4 mg/dL (0.4-1.0)
[2018-02-26] MEDS ORDERED: PANTOPRAZOLE 40 MG TABLET PO SCH (07:00)
[2018-02-26] MEDS: BUDESONIDE 0.5 MG/2 ML NEB INH SCH ×2 (07:06→19:19)
[2018-02-26] MEDS: FORMOTEROL FUMARATE NEB 20 MCG/2 ML INH SCH ×2 (07:06→19:19)
[2018-02-26] MEDS ORDERED: POTASSIUM CHLORIDE 20 MEQ/15 ML UDC PO ONE (09:00)
[2018-02-26] MEDS: METHYLNALTREXONE 12 MG/0.6 ML VIAL SUBQ SCH (09:05)
[2018-02-26] MEDS: SERTRALINE 50 MG TABLET PO SCH (09:05)
[2018-02-26] MEDS: POTASSIUM CHLORIDE 20 MEQ/15 ML UDC PO SCH (09:05)
[2018-02-26] MEDS: SPIRONOLACTONE 25 MG TABLET PO SCH (09:05)
[2018-02-26] MEDS: POLYETHYLENE GLYCOL 3350 17 GM PACKET PO SCH (09:05)
[2018-02-26] MEDS: METOPROLOL SUCCINATE 25 MG TABLET PO SCH ×2 (09:06→17:35)
--- NOTE | 2018-02-26 11:44 | CONSULTATION NOTE ---
Palliative Care Follow Up - Referral Referring Provider: Lan DONALDSON Time of Visit: Referral setting: Hospitalized patient Referral Reason: Abdominal Mass/SBO/Goals of Care - Information Sources Records reviewed: RN notes reviewed, Previous records reviewed History/Review of Systems obtained from: Patient, Caregiver Exam limitations: Clinical condition - History of Present Illness Update Brief HPI Update: This is a 87-year-old woman with an abdominal mass, resolving small bowel obstruction, and severe emphysema. She continues to improve, she has been on clear liquids, though has early satiety but is taking fluids without difficulty, she denies nausea, has some stomach "ache". She was on the commode this morning with just a small BM, she has received Reglan and Relistor. She is quite fatigued, has significant weakness, and short of breath with any activity. Palliative care meeting with Laura, her Henry, and Yolis for family meeting with patient regarding goals of care. Social History - Living Situation Living arrangement: At home Living Situation: With family Support System: Patient lives in her own home, her son Joaquin lives with her to support her. Though he does not provide personal care but cooking and oversight of handing her things etc. her daughter Laura comes on a regular frequent basis to help her with a commode, and anything else patient will allow she is quite independent. Patient does admit is going to need more support, and is counting on her family providing this. Medications/Allergies - Medications Active Medication List: Active Medications Acetaminophen (Tylenol) 650 mg PO Q4HR PRN PRN Reason: Pain 1 to 4 Albuterol/Ipratropium (Duoneb) 3 ml INH Q4HR PRN PRN Reason: Wheezing Last Admin: 02/25/18 08:00 Dose: 3 ml Budesonide (Pulmicort) 0.5 mg INH RTBID [facility] Last Admin: 02/26/18 07:06 Dose: 0.5 mg Formoterol Fumarate (Perforomist) 20 mcg INH RTBID [facility] Last Admin: 02/26/18 07:06 Dose: 20 mcg Methylnaltrexone [place] (Relistor) 8 mg SUBQ DAILY [facility] Last Admin: 02/26/18 09:05 Dose: 8 mg Metoclopramide HCl (Reglan) 10 mg PO Q6H [facility] Last Admin: 09/20/18 06:17 Dose: 10 mg Metoprolol Succinate (Toprol Xl) 50 mg PO BIDWM [facility] Last Admin: 02/26/18 09:06 Dose: 50 mg Mineral Oil (Cavilon) 1 applic TOP PRN PRN PRN Reason: Skin Care Last Admin: 02/25/18 13:28 Dose: 1 applic Ondansetron HCl (Zofran Odt) 4 mg TL Q4HR PRN PRN Reason: Nausea / Vomiting Oxycodone HCl (Roxicodone) 5 mg PO Q4HR PRN PRN Reason: Pain 5 to 7 Oxycodone HCl (Roxicodone) 10 mg PO Q4HR PRN PRN Reason: Pain 8 to 10 Pantoprazole Sodium (Protonix) 40 mg PO QDAC [facility] Last Admin: 02/26/18 06:16 Dose: 40 mg Polyethylene Glycol (Miralax) 17 gm PO DAILY [facility] Last Admin: 02/26/18 09:05 Dose: 17 gm Potassium Chloride () 20 meq PO DAILYWM [facility] Last Admin: 02/26/18 09:05 Dose: 20 meq Promethazine HCl (Phenergan Inj) 25 mg IM Q6HR PRN PRN Reason: Nausea / Vomiting Sertraline HCl (Zoloft) 50 mg PO DAILY [facility] Last Admin: 02/26/18 09:05 Dose: 50 mg Spironolactone (Aldactone) 25 mg PO DAILY [facility] Last Admin: 02/26/18 09:05 Dose: 25 mg Throat Lozenges (Cepacol) 1 lozenge MM Q2HR PRN PRN Reason: Throat pain Last Admin: 02/22/18 14:28 Dose: 1 lozenge Zolpidem Tartrate (Ambien) 5 mg PO QPM PRN PRN Reason: Insomnia Aspirin [Aspir 81] 81 mg ORAL DAILY 04/05/14 Sertraline [Zoloft] 50 mg PO DAILY 12/21/17 Ipratropium/Albuterol [Duoneb] 3 ml INH QID 02/22/18 Beclomethasone Dipropionate [Qvar Redihaler] 100 mcg INH BID 02/24/18 Ipratropium/Albuterol [Combivent Respimat] 1 puffs INH QID 02/24/18 - Allergies Allergies/Adverse Reactions: Allergies Allergy/AdvReac Type Severity Reaction Status Date / Time levofloxacin [From Levaquin] AdvReac Unknown Verified 02/21/18 20:21 Review of Systems - Constitutional Constitutional: reports: Fatigue, Weight loss. denies: Fever - Eyes Eyes: reports: Vision loss (macular degeneration) - Ears, Nose & Throat Ears, Nose & Throat: reports: Hearing loss (need to speak loudly and clearly;), Dry mouth - Cardiovascular Cardiovascular: reports: Exertional dyspnea, Decr. exercise tolerance, Orthopnea - Respiratory Respiratory: reports: Cough, Sputum production, SOB at rest (baseline), SOB with exertion - Gastrointestinal Gastrointestinal: reports: Early satiety. denies: Nausea, Vomiting, Reflux/heartburn - Genitourinary Genitourinary: denies: Incontinence (transfer to the commode) - Musculoskeletal Musculoskeletal: reports: Stiffness, Muscle weakness, Other (mostly recliner bound at home, ambulate short distances at home; currently has only been tranfering to the commode and mostly bedbound during hospitalization) - Integumentary Integumentary: reports: Dryness, Other (coccyx pressure area) - Neurological Neurological: reports: General weakness, Memory problems (fluctuating depending on fatigue; STM issuse) - Psychiatric Psychiatric: reports: Anxiety - Endocrine Endocrine: reports: Other (likes fans) - Hematologic/Lymphatic Hematologic/Lymphatic: reports: Anemia (stable) - All Other Systems All Other Systems: reports: Reviewed and negative Physical Exam - Vital Signs Vital Signs: Vital Signs x48h Temp Pulse Pulse Resp BP Pulse Ox 02/26/18 09:00 36.6 C 82 18 135/84 H 100 02/26/18 07:09 74 16 - Physical Exam General Appearance: positive: No acute distress Eyes Bilateral: positive: Normal inspection Neck: positive: No JVD, Trachea midline Cardiovascular: positive: Regular rate & rhythm Respiratory: positive: Diminished throughout, Other (breathless with activity and talking) Abdomen: positive: Non-tender, Soft, Abnml bowel sounds (sluggish but positive) Skin: positive: Pallor, Dryness Extremities: positive: Pedal edema (trace pedal edema) Neurologic/Psychiatric: positive: Oriented x3, Mood/affect nml, Weakness Palliative Care - POLST Patient has POLST: Yes POLST Status: DNR, Comfort Measures (completed POLST; had counseled with famly prior; reviewed with patient) Pain: No pain Tiredness/Fatigue: Severe (7-10) Drowsiness/Sedation: Mild (1-3) Nausea: None Depression: None Anxiety: Mild (1-3) Dyspnea: Moderate (4-6) Anorexia: Moderate (4-6) - Palliative Care Discussion: Family meeting to discuss patient's current status, she does get a little bit mixed up about the surgeries. She does understand she has a tumor at this point no surgery is planned. She will be going home, which is her goal. She does understand she is most likely not to get better and to continue to deteriorate. She is quite independent, we did discuss with her family would need to take care of her, she did agree to hospice with the intention to provide support for them. She does not want to be resuscitated, ENRIQUETA [facility] was completed with goals for comfort focused. We did discuss in the context of hospice if things were to change they do have the ability to revoke if needed. Goal at this point in time is for her to be in her own home and spend time with family. All do recognize she is quite frail and fragile, that this is an uncharted course, but most likely not to get better and that she does have the risk of recurrent obstruction. Results - Lab Results Lab results reviewed: Yes Fish Bones: 02/26/18 06:15 02/26/18 06:15 Lab and Imaging Results: Lab Results x24hrs 02/26/18 02/26/18 Range/Units 06:15 06:15 WBC 5.3 (4.8-10.8) x10^3/uL RBC 3.22 L (4.20-5.40) 10^6/uL Hgb 10.0 L (12.0-16.0) g/dL Hct 31.2 L (37.0-47.0) % MCV 96.8 (81.0-99.0) fL MCH 31.2 H (27.0-31.0) pg MCHC 32.2 (32.0-36.0) g/dL RDW 15.5 H (12.0-15.0) % Plt Count 355 (130-450) 10^3/uL MPV 7.5 L (7.9-10.8) fL Neut # (Auto) 4.0 (1.5-6.6) 10^3/uL Lymph # (Auto) 0.4 L (1.5-3.5) 10^3/uL [place] # (Auto) 0.6 (0.0-1.0) 10^3/uL Eos # (Auto) 0.2 (0.0-0.7) 10^3/uL Baso # (Auto) 0.0 (0.0-0.1) 10^3/uL Absolute Nucleated RBC 0.00 x10^3/uL Nucleated RBC % 0.0 /100WBC Sodium 142 (135-145) mmol/L Potassium 3.1 L (3.5-5.0) mmol/L Chloride 105 (101-111) mmol/L Carbon Dioxide 33 H (21-32) mmol/L Anion Gap 4.0 L (6-13) BUN 6 (6-20) mg/dL Creatinine 0.4 (0.4-1.0) mg/dL Estimated GFR (MDRD) 151 (>89) Glucose 95 (70-100) mg/dL Calcium 8.6 (8.5-10.3) mg/dL Total Bilirubin 0.6 (0.2-1.0) mg/dL AST 15 (10-42) IU/L ALT 23 (10-60) IU/L Alkaline Phosphatase 55 (42-121) IU/L Total Protein 5.0 L (6.7-8.2) g/dL Albumin 2.6 L (3.2-5.5) g/dL Globulin 2.4 (2.1-4.2) g/dL Albumin/Globulin Ratio 1.1 (1.0-2.2) Impression and Recommendations - Palliative Care Impression: This is a very fragile 87-year-old woman who presents with an abdominal mass, resolving small bowel obstruction, and advanced emphysema. Her abdominal tumor, though not biopsied has showed progressive growth. She has also had ongoing functional decline as well as increased compromise from her emphysema. Given her goals which are to be at home, has been time with her family, and to allow natural , transition to hospice appears appropriate. Recommendations/Counseling Done: 1. Resolving small bowel obstruction. Patient will be discharged on Reglan 10 mg 3 times daily, will initiate bowel program as appropriate, and will progress diet slowly. She is progressing to full liquids, dietitian to consult today, hospice can continue to evaluate appropriate diet. And 2. Emphysema. Patient is well managed on her current regimen at home, she has inhalers and nebulizers which do provide her adequate relief at this point in time. She does not have respiratory distress, given her concern for obstruction, and less indicated for pain would not initiate morphine for respiratory comfort. 3. Generalized weakness. Patient has had ongoing functional decline, and now presents as quite weak. Will order hospital bed, she does have recliner, and commode. Will evaluate at time of discharge, but do feel she could most likely be transitioned to home with a wheelchair and family support. May need to reevaluate tomorrow morning to make sure patient does not need BLS transfer. 4. Advanced care planning. ENRIQUETA ST completed with patient and family. Counseli joce regarding hospice benefit, they are aware does not pay for [facility] care, she does have a long-term care insurance they are looking into this. Hospice contacted regarding pending discharge tomorrow, and equipment needs for delivery. Though this is not dependent as far as timing of discharge. H ospitalist needs to send hospice order. Time Spent: 60 minutes with greater than 50% of this done in counseling regarding goals of care, anticipatory guidance, education on hospice benefit and coordination of care with hospitalist/dietitian/hospice.
--- NOTE | 2018-02-26 15:17 | PROVIDER PROGRESS NOTE ---
Subjective - Prog Note Date Prog Note Date: 02/26/18 - Subjective Pt reports feeling: Improved Subjective: pt state she feels better, she tolerate the liquid diet, no N/V. pt did have twice small bowel movement. Per casey's meeting with pt and her family, plan to d/c home with hospice support tomorrow. Hospice was consulted as well, and the equipment is planned to deliver to home Current Medications - Current Medications Current Medications: Active Medications Acetaminophen (Tylenol) 650 mg PO Q4HR PRN PRN Reason: Pain 1 to 4 Albuterol/Ipratropium (Duoneb) 3 ml INH Q4HR PRN PRN Reason: Wheezing Last Admin: 02/25/18 08:00 Dose: 3 ml Budesonide (Pulmicort) 0.5 mg INH RTBID [facility] Last Admin: 02/26/18 07:06 Dose: 0.5 mg Docusate Sodium (Colace 250mg Capsule) 250 mg PO DAILY [facility] Formoterol Fumarate (Perforomist) 20 mcg INH RTBID [facility] Last Admin: 02/26/18 07:06 Dose: 20 mcg Metoclopramide HCl (Reglan) 10 mg PO Q6H [facility] Last Admin: 02/26/18 12:25 Dose: 10 mg Metoprolol Succinate (Toprol Xl) 50 mg PO BIDWM [facility] Last Admin: 02/26/18 09:06 Dose: 50 mg Mineral Oil (Cavilon) 1 applic TOP PRN PRN PRN Reason: Skin Care Last Admin: 02/25/18 13:28 Dose: 1 applic Ondansetron HCl (Zofran Odt) 4 mg TL Q4HR PRN PRN Reason: Nausea / Vomiting Oxycodone HCl (Roxicodone) 5 mg PO Q4HR PRN PRN Reason: Pain 5 to 7 Oxycodone HCl (Roxicodone) 10 mg PO Q4HR PRN PRN Reason: Pain 8 to 10 Pantoprazole Sodium (Protonix) 40 mg PO QDAC [facility] Last Admin: 02/26/18 06:16 Dose: 40 mg Polyethylene Glycol (Miralax) 17 gm PO DAILY [facility] Last Admin: 02/26/18 09:05 Dose: 17 gm Potassium Chloride () 20 meq PO DAILYWM [facility] Last Admin: 02/26/18 09:05 Dose: 20 meq Promethazine HCl (Phenergan Inj) 25 mg IM Q6HR PRN PRN Reason: Nausea / Vomiting Senna (Senokot) 8.6 mg PO DAILY [facility] Sertraline HCl (Zoloft) 50 mg PO DAILY [facility] Last Admin: 02/26/18 09:05 Dose: 50 mg Spironolactone (Aldactone) 25 mg PO DAILY [facility] Last Admin: 02/26/18 09:05 Dose: 25 mg Throat Lozenges (Cepacol) 1 lozenge MM Q2HR PRN PRN Reason: Throat pain Last Admin: 02/22/18 14:28 Dose: 1 lozenge Zolpidem Tartrate (Ambien) 5 mg PO QPM PRN PRN Reason: Insomnia Aspirin [Aspir 81] 81 mg ORAL DAILY 04/05/14 Sertraline [Zoloft] 50 mg PO DAILY 12/21/17 Ipratropium/Albuterol [Duoneb] 3 ml INH QID 02/22/18 Beclomethasone Dipropionate [Qvar Redihaler] 100 mcg INH BID 02/24/18 Ipratropium/Albuterol [Combivent Respimat] 1 puffs INH QID 02/24/18 Objective - Vital Signs/Intake & Output Reviewed Vital Signs: Yes Vital Signs: Vital Signs x48h Temp Pulse Pulse Resp BP Pulse Ox 02/26/18 09:00 36.6 C 82 18 135/84 H 100 02/26/18 07:09 74 16 Intake & Output: Intake & Output 02/23/18 02/24/18 02/25/18 02/26/18 23:59 23:59 23:59 23:59 Intake Total 2049 2068.385 2231.388 600 Output Total 400 50 301 180 Balance 1650 2019.385 1930.388 420 - Objective General Appearance: positive: No acute distress, Alert. negative: Lethargic Eyes Bilateral: positive: Normal inspection, PERRL, No lid inflammation, Conjunctivae nml ENT: positive: ENT inspection nml, Pharynx nml, No signs of dehydration. negative: Purulent nasal drainage, Pharyngeal erythema, Oral lesions Neck: positive: Nml inspection, Thyroid nml, No JVD, Trachea midline. negative: Thyromegaly, Lymphadenopathy (R), Lymphadenopathy (L), Stiff neck, Swelling/bruising, Tracheal deviation Respiratory: positive: Chest non-tender, No respiratory distress, Breath sounds nml. negative: Wheezes, Rales, Rhonchi Cardiovascular: positive: No murmur, Irregularly irregular, Tachycardia. nega tive: Extrasystoles, Bradycardia, JVD present, Systolic murmur, Diastolic murmur Peripheral Pulses: 2+ Radial (R), 2+ Radial (L), 2+ Dorsalis pedis (R), 2+ Dorsalis pedis (L) Abdomen: positive: Nml bowel sounds, Tenderness, Mass Back: positive: Nml inspection. negative: CVA tenderness (R), CVA tenderness (L) Skin: positive: Color nml, No rash, Warm, Dry. negative: Cyanosis, Diaphoresis, Pallor Extremities: positive: Non-tender, Full ROM, Nml appearance. negative: Calf tenderness, Joint swelling, Osei's sign/cords Neurologic/Psychiatric: positive: Oriented x3, Sensation nml, Mood/affect nml. negative: Weakness, Sensory loss, Facial droop, Slurred/abnml speech, Depressed mood/affect - Lab Results Fish Bones: 02/26/18 06:15 02/26/18 06:15 Other Labs: Lab Results x24hrs 02/26/18 02/26/18 Range/Units 06:15 06:15 WBC 5.3 (4.8-10.8) x10^3/uL RBC 3.22 L (4.20-5.40) 10^6/uL Hgb 10.0 L (12.0-16.0) g/dL Hct 31.2 L (37.0-47.0) % MCV 96.8 (81.0-99.0) fL MCH 31.2 H (27.0-31.0) pg MCHC 32.2 (32.0-36.0) g/dL RDW 15.5 H (12.0-15.0) % Plt Count 355 (130-450) 10^3/uL MPV 7.5 L (7.9-10.8) fL Neut # (Auto) 4.0 (1.5-6.6) 10^3/uL Lymph # (Auto) 0.4 L (1.5-3.5) 10^3/uL Todd # (Auto) 0.6 (0.0-1.0) 10^3/uL Eos # (Auto) 0.2 (0.0-0.7) 10^3/uL Baso # (Auto) 0.0 (0.0-0.1) 10^3/uL Absolute Nucleated RBC 0.00 x10^3/uL Nucleated RBC % 0.0 /100WBC Sodium 142 (135-145) mmol/L Potassium 3.1 L (3.5-5.0) mmol/L Chloride 105 (101-111) mmol/L Carbon Dioxide 33 H (21-32) mmol/L Anion Gap 4.0 L (6-13) BUN 6 (6-20) mg/dL Creatinine 0.4 (0.4-1.0) mg/dL Estimated GFR (MDRD) 151 (>89) Glucose 95 (70-100) mg/dL Calcium 8.6 (8.5-10.3) mg/dL Total Bilirubin 0.6 (0.2-1.0) mg/dL AST 15 (10-42) IU/L ALT 23 (10-60) IU/L Alkaline Phosphatase 55 (42-121) IU/L Total Protein 5.0 L (6.7-8.2) g/dL Albumin 2.6 L (3.2-5.5) g/dL Globulin 2.4 (2.1-4.2) g/dL Albumin/Globulin Ratio 1.1 (1.0-2.2) ABX Reporting Has patient been on IV antibiotics over the past 48 hours?: No Assessment/Plan - Problem List (1) Small bowel obstruction Impression: Impression: 02/26 pt state she feel better, pt tolerate her diet, and had two small bowel movement. pt request advance diet full liquid diet continue support Patient presented with abdominal pain, nausea and vomiting. She continues to have a rounded,tender, firm abdomen. The CT of the patient's abdomen revealed a distal small bowel obstruction with transition point in the right pelvis. Palliative care is now in place and the family has decided against surgery with plans to return home with Hospice care. Today, since there had been only ~100 ml out since midnight, a order was written to remove NG and start the patient on a clear liquid diet. Upon exam she continues to have a rounded,tender, firm abdomen. Bowel sounds are present and she admits to flatus. Plan: Continue with CL diet. (2) Splenic mass Impression: discuss with pt, continue support The patient is noted to have splenic mass that has increased in size since her last imaging and is now 14.3 x 12.2 x 9.6 cm, previously 9.2 x 9.2 x 7.2 cm. There is also evidence of hemorrhage to the lateral margin. The patient complained of abdominal pain leading to this admission, and this could be a contributing factor. She appears hemodynamically stable, so continued bleeding is no longer a concern. Plan: Monitor for signs of deterioration. (3) Oxygen dependent Impression: The patient wears 3L via nasal cannula chronically at home, which continues here. 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 She is not in respiratory distress at all upon exam and I suspect that the newly started spironolactone will help out with her breathing. Plan: Continue to monitor respiratory status. (4) Hypertension Impression: stable The patient is prescribed lasix, potassium and metoprolol at home. She was on a short acting metoprolol, that has been resumed to a long acting form and sent to her pharmacy in preparation for discharge. I have also discontinued her lasix and potassium and given her spironolactone based on her latest echo report. Plan: Continue to monitor and check vital signs daily. 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 She is also on chronic oxygen at 3L at home. She does not appear to be in respiratory distress. Plan: Continue to monitor. (6) Sore throat Impression: The patient has no more complaints of a sore throat since her NG has been remov ed. Plan: Continue oral care and offer PRN meds. (7) Confusion state Impression: better and stable. continue neuro check The patient has been more forgetful that has become worse over the past few months. She can recognize her family, but does not seem to remember my visits from day to day. She has not attempted to get out to bed and has been comfortable. This is likely a consequence of her failing health and fragility. Today upon exam, she did remember our visit yesterday and commented on my glittery earrings. She appears to be comprehending more appropriately with improved STM. Plan: Continue to monitor. (8) Moderate to severe pulmonary hypertension Impression: An echo was completed during this stay and shows elevated right sided heart pressures with an RVSP at rest of 57 mm Hg, showing moderate to severe pulmonary hypertension. She has been started on daily Spironolactone, which was sent to her pharmacy. She is also oxygen dependent. This condition is likely a condition of her life-long smoking habit. Plan: Continue supplemental oxygen and daily spironolactone. (9) hospice care palliative care provider consult, hospice care consult plan d/c home with hospice support on tomorrow
[2018-02-26] MEDS: DOCUSATE SODIUM 250 MG CAPSULE PO SCH (17:35)
[2018-02-26] MEDS: SENNA 8.6 MG TABLET PO SCH (17:35)
[2018-02-27 06:24] LABS: ALBUMIN 2.6 g/dL (3.2-5.5); BILIRUBIN,TOTAL 0.5 mg/dL (0.2-1.0); CALCIUM 8.6 mg/dL (8.5-10.3); CREATININE 0.5 mg/dL (0.4-1.0); TOTAL PROTEIN 5.3 g/dL (6.7-8.2)
[2018-02-27] MEDS: METOCLOPRAMIDE 10 MG TABLET PO SCH ×2 (07:39→09:32)
[2018-02-27 07:49] VITALS: BP 139/57
[2018-02-27] MEDS: IPRATROPIUM/ALBUTEROL 3 ML NEB INH PRN (08:00)
[2018-02-27] MEDS: FORMOTEROL FUMARATE NEB 20 MCG/2 ML INH SCH (08:00)
[2018-02-27] MEDS: BUDESONIDE 0.5 MG/2 ML NEB INH SCH (08:00)
[2018-02-27] MEDS: SENNA 8.6 MG TABLET PO SCH (09:35)
[2018-02-27] MEDS: METOPROLOL SUCCINATE 25 MG TABLET PO SCH (09:35)
[2018-02-27] MEDS: SPIRONOLACTONE 25 MG TABLET PO SCH (09:36)
[2018-02-27] MEDS: SERTRALINE 50 MG TABLET PO SCH (09:37)
[2018-02-27] MEDS: POTASSIUM CHLORIDE 20 MEQ/15 ML UDC PO SCH (09:39)
[2018-02-27] MEDS: DOCUSATE SODIUM 250 MG CAPSULE PO SCH (09:41)
[2018-02-27] MEDS: POLYETHYLENE GLYCOL 3350 17 GM PACKET PO SCH (09:42)
--- NOTE | 2018-02-27 10:52 | Discharge Plan ---
Discharge Plan Disposition: 50 Hospice/Home DC/Xfer Condition: Poor Prescriptions: LORazepam [Ativan] 0.5 mg PO Q6H PRN #15 tablet PRN Reason: Agitation Metoclopramide [Reglan] 10 mg PO Q6H #15 tablet Metoprolol Succinate 50 mg PO BIDWM #60 tab.er.24h Spironolactone 25 mg PO DAILY #30 tablet Diet: Soft (full liquid diet, follow up hospice care) Activity Restrictions: Additional Comments (follow up hospice care) Shower Restrictions: No (fall precaution) Additional Instructions or Follow Up instructions: you may follow up your hospice care, Dr Alfred, after discharge. Follow-Up Care: Hospice No Smoking: If you smoke, Please STOP! Call for help.
[2018-02-27] MEDS ORDERED: MIN OIL/DIMETHICON/COCONUT OIL 92 GM TUBE TOP PRN (11:02)
--- NOTE | 2018-02-27 11:18 | DISCHARGE SUMMARY ---
"Discharge Summary Discharge Date: 02/27/18 Discharging Provider: GOMEZ Primary Care Provider: Dr. Alfred Condition at Discharge: Poor Discharge Disposition: 50 Hospice/Home DC/Xfer Discharge Facility Name: home - DIAGNOSES Admission Diagnoses: (1) Small bowel obstruction (2) Retroperitoneal mass (3) Hypertension (4) COPD (chronic obstructive pulmonary disease) with emphysema Discharge Diagnoses with Status of Each Condition: (1) Small bowel obstruction pt has bowel movement, pt tolerate the diet, No N/V. (2) Splenic mass consult with surgeon. Surgeon signed off pt. pt state to me she does not want any surgery. Pt and her family agree hospice care. Follow up hospice care (3) Oxygen dependent stable, continue home regime (4) Hypertension stable (5) COPD (chronic obstructive pulmonary disease) with emphysema stable (6) Sore throat resolved (7) Confusion state stable (8) Moderate to severe pulmonary hypertension stable (9) hospice care follow up hospice care at home setting. - HPI History of Present Illness: refer from Dr. Antonio's HPI for pt as the following: Patient is an 87-year-old female with a past medical history significant for emphysema on 4 L of home oxygen, paroxysmal supraventricular tachycardia, hypertension, depression and recent diagnosis of a splenic tumor for which she was following with Dr. Ervin, general surgery and presents to the emergency department today with chief complaint of abdominal pain, nausea and vomiting. The patient states that her symptoms started about 3 days ago with mild abdominal pain which she states was located mostly in the right lower quadrant. She states over the last 3 days the pain has gradually been worsening to the point where today it became severe. She states that today the pain was 8-9 out of 10 prior to her coming to the emergency department. The patient states that it was a cramping type of pain and initially was intermittent but now was becoming more and more constant. The patient states that she had associated nausea for the last 2 days and felt as though she could vomit but continued to resist the vomiting. She states that today she could no longer keep herself from vomiting and has had multiple episodes of vomiting at home. She also states that she has had decreased appetite and has been unable to eat anything today. The patient states that her last bowel movement was earlier this morning. She states that although the last 2 days she has not been feeling well today is when she really felt sick. The patient also states that her family has noticed that she has had increasing distention of her abdomen. She states that her abdomen is always slightly distended but it is significantly more distended today. The patient denies any fevers or chills. She denies any urinary urgency, urinary frequency or dysuria. She denies any flank pain. She denies any diarrhea. Patient denies any headaches, blurred vision, runny nose, sore throat, nasal congestion, difficulty swallowing, chest pain, shortness of air, orthopnea, PND, increased lower extremity swelling, palpitations, joint pain, joint swelling, back pain, neck stiffness, hair loss, skin rash, recent unintentional weight loss or any focal neurologic deficits. On presentation to the emergency department the patient was afebrile and hypertensive with otherwise normal vital signs. The patient was on 4 L of oxygen which is her normal home oxygen requirement. The patient was found to have significant abdominal tenderness on examination with a very distended abdomen. The patient's initial lab work revealed a mild anemia but otherwise was within normal limits. The patient's urinalysis was negative. The patient did undergo a CT of her abdomen and pelvis which revealed a new distal small bowel obstruction. 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 Given these findings of new distal small bowel obstruction the emergency room physician spoke with the surgeon benefits consultant Dr. Ortiz who asked that the hospitalist team admit the patient and place an NG tube to suction. He stated that he would consult on the patient and for now that the patient should be treated with medical management. - CONSULTS | PROCEDURES Consultations: consult with palliative care, hospice care, and surgeon - ALLERGIES Allergies/Adverse Reactions: Allergies Allergy/AdvReac Type Severity Reaction Status Date / Time levofloxacin [From Levaquin] AdvReac Unknown Verified 02/21/18 20:21 - MEDICATIONS Home Medications: Ambulatory Orders Medication Instructions Recorded Confirmed Aspirin [Aspir 81] 81 mg ORAL DAILY 04/05/14 02/22/18 Sertraline [Zoloft] 50 mg PO DAILY 12/21/17 02/22/18 Ipratropium/Albuterol [Duoneb] 3 ml INH QID 02/22/18 02/22/18 Beclomethasone Dipropionate [Qvar 100 mcg INH BID 02/24/18 02/24/18 Redihaler] Ipratropium/Albuterol [Combivent 1 puffs INH QID 02/24/18 02/24/18 Respimat] Metoprolol Succinate 50 mg PO BIDWM #60 tab.er.24h 02/25/18 Spironolactone 25 mg PO DAILY #30 tablet 02/25/18 LORazepam [Ativan] 0.5 mg PO Q6H PRN #15 tablet 02/27/18 Metoclopramide [Reglan] 10 mg PO Q6H #15 tablet 02/27/18 - PHYSICAL EXAM AT DISCHARGE General Appearance: positive: No acute distress, Alert. negative: Lethargic Eyes Bilateral: positive: Normal inspection, PERRL, No lid inflammation, Conjunctivae nml ENT: positive: ENT inspection nml, Pharynx nml, No signs of dehydration. negative: Purulent nasal drainage, Pharyngeal erythema, Oral lesions Neck: positive: Nml inspection, Thyroid nml, No JVD, Trachea midline. negative: Thyromegaly, Lymphadenopathy (R), Lymphadenopathy (L), Stiff neck, Swelling/bruising, Tracheal deviation Respiratory: positive: Chest non-tender, No respiratory distress, Wheezes. negative: Rales, Rhonchi Cardiovascular: positive: No murmur, No gallop. negative: Extrasystoles, Tach ycardia, Bradycardia, Systolic murmur, Diastolic murmur Peripheral Pulses: positive: 2+ Abdomen: positive: Non-tender, Nml bowel sounds. negative: Tenderness, Guarding, Rebound Back: positive: Nml inspection. negative: CVA tenderness (R), CVA tenderness (L) Skin: positive: Color nml, No rash, Warm, Dry. negative: Cyanosis, Diaphoresis, Pallor Extremities: positive: Non-tender, Full ROM, Nml appearance. negative: Calf tenderness, Joint swelling, Osei's sign/cords Neurologic/Psychiatric: positive: Oriented x3, Sensation nml, Mood/affect nml. negative: Weakness, Sensory loss, Facial droop, Slurred/abnml speech, Depressed mood/affect - LABS Result Diagrams: 02/26/18 06:15 02/27/18 05:29 - FOLLOW UP Follow Up: you may follow up your hospice care, Dr Alfred, after discharge. - TIME SPENT Time Spent in Discharge (Minutes): 50"
== END 2018-02-27 11:30 | disposition hospice, home (50) | DRG 305 ==
LOC: EDUNIT# → ED 20:01 → MS2 22:47
PROVIDERS: ADMIT Internal Medicine; ATTEND Nurse Practitioner Gerontology
DX: K56.609 Unspecified intestinal obstruction, unspecified as to partial versus complete obstruction (principal); I10 Essential (primary) hypertension; R19.09 Other intra-abdominal and pelvic swelling, mass and lump; I47.1 Supraventricular tachycardia; D49.0 Neoplasm of unspecified behavior of digestive system; J43.9 Emphysema, unspecified; I27.20 Pulmonary hypertension, unspecified; R41.0 Disorientation, unspecified; F32.9 Major depressive disorder, single episode, unspecified; F41.9 Anxiety disorder, unspecified; Z66 Do not resuscitate; Z79.82 Long term (current) use of aspirin; Z79.51 Long term (current) use of inhaled steroids; Z99.81 Dependence on supplemental oxygen; Z91.89 Other specified personal risk factors, not elsewhere classified; Z87.891 Personal history of nicotine dependence
CPT/HCPCS: 36415; 71045; 74177; 80053; 81001; 81003; 83605; 83690; 83735; 84100; 85025; 87086; 93306; 94640; 96374; 99222; 99233; 99283; 99284

== ENCOUNTER 2018-02-27 11:32 | Outpatient (CLI) | payer MEDICARE, OTHER | END 2018-02-27 11:33 | disposition hospice, home (50) | LOC: EMS 11:32 | PROVIDERS: ATTEND Surgery | DX: J44.9 Chronic obstructive pulmonary disease, unspecified (principal); K56.609 Unspecified intestinal obstruction, unspecified as to partial versus complete obstruction | CPT/HCPCS: A0425; A0428 ==